=== PATIENT | female | born 1930 | race Caucasian/White ===

== ENCOUNTER 2016-06-25 17:53 | Inpatient (IN) | payer MEDICARE, OTHER ==
[2016-06-25] MEDS ORDERED: ONDANSETRON HCL INJ/PF 4 MG/2 ML SDV ONE (18:19)
[2016-06-25] MEDS ORDERED: ONDANSETRON HCL INJ/PF 4 MG/2 ML SDV IV ONE (18:26)
[2016-06-25] MEDS ORDERED: MORPHINE SULFATE 10 MG/ML INJ IV ONE (18:33)
--- NOTE | 2016-06-25 18:38 | ER Document Report ---
ED GI/ - General Chief Complaint: Abdominal Pain >50 Stated Complaint: ABDOMINAL PAIN Notes: The patient is an 86-year-old female, past medical history rectal cancer status post colectomy and colostomy (in [address] Good), presents with 2 hours of nausea, vomiting, severe abdominal pain and no output from her colostomy bag. She denies fevers, hematemesis, chest pain, shortness of breath or back pain. TRAVEL OUTSIDE OF THE [place] IN LAST 30 DAYS: No - Related Data Allergies/Adverse Reactions: No Known Allergies Allergy (Verified 06/25/16 18:09) Past Medical History - General Information source: Patient, Emergency Med Personnel - Social History Smoking Status: Unknown if Ever Smoked Family History: Reviewed & Not Pertinent - Past Medical History Cardiac Medical History: Denies: Hx Congestive Heart Failure, Hx Coronary Artery Disease, Hx DVT, Hx Heart Attack, Hx Hypercholesterolemia, Hx Hypertension, Hx Pulmonary Embolism Pulmonary Medical History: Reports: Hx Pneumonia - hx of Denies: Hx Asthma, Hx Bronchitis, Hx COPD, Hx Tuberculosis Neurological Medical History: Denies: Hx Cerebrovascular Accident, Hx Seizures Endocrine Medical History: Denies: Hx Diabetes Mellitus Type 1, Hx Diabetes Mellitus Type 2, Hx Hyperthyroidism, Hx Hypothyroidism Renal/ Medical History: Denies: Hx Ovarian Cysts, Hx Pelvic Inflammatory Disease Malignancy Medical History: Reports: Hx Colorectal Cancer, Hx Skin Cancer - Melanoma, left forearm, status post excision of same.. Denies: Hx Breast Cancer , Hx Cervical Cancer, Hx Ovarian Cancer GI Medical History: Reports: Hx Colonoscopy, Hx Endoscopy. Denies: Hx Cirrhosis , Hx Crohn's Disease, Hx Gastroesophageal Reflux Disease, Hx Hepatitis, Hx Hiatal Hernia, Hx Irritable Bowel, Hx Liver Failure, Hx Ulcer Musculoskeltal Medical History: Denies Hx Arthritis Psychiatric Medical History: Reports: Hx Depression Infectious Medical History: Denies: Hx Hepatitis Past Surgical History: Reports: Hx Appendectomy, Hx Bowel Diversion, Hx Bowel Surgery, Hx Hysterectomy, Hx Ileostomy. Denies: Hx Section, Hx Cholecystectomy, Hx Colostomy, Hx Coronary Artery Bypass Graft, Hx Gastric Bypass Surgery, Hx Herniorrhaphy, Hx Mastectomy, Hx Open Heart Surgery, Hx Pacemaker, Hx Tonsillectomy, Hx Tubal Ligation - Immunizations Hx Diphtheria, Pertussis, Tetanus Vaccination: Yes Hx Pneumococcal Vaccination: 03/30/10 Review of Systems - Review of Systems Notes: REVIEW OF SYSTEMS: CONSTITUTIONAL: Denies fever, chills, or sweats. Denies recent illness. EENT: Denies eye, ear, throat, or mouth pain or symptoms. Denies nasal or sinus congestion. CARDIOVASCULAR: Denies chest pain, syncope. RESPIRATORY: Denies cough, cold, or chest congestion. Denies shortness of breath, difficulty breathing, or wheezing. GASTROINTESTINAL: + Abdominal pain, nausea, vomiting GENITOURINARY: Denies difficulty urinating, painful urination, burning, frequency, or blood in urine. MUSCULOSKELETAL: Denies neck or back pain or joint pain or swelling. SKIN: Denies rash or skin lesions. HEMATOLOGIC: Denies easy bruising or bleeding. LYMPHATIC: Denies swollen, enlarged glands. NEUROLOGICAL: Denies altered mental status or loss of consciousness. Denies headache. Denies weakness or paralysis or loss of use of either side. Denies problems with gait or speech. Denies sensory or motor loss. PSYCHIATRIC: Denies anxiety or stress or depression. ALL OTHER SYSTEMS REVIEWED AND NEGATIVE. Physical Exam - Vital signs Vitals: Pulse Resp BP Pulse Ox 60 18 124/56 L 100 06/25/16 18:00 06/25/16 18:00 06/25/16 18:00 06/25/16 18:00 - Notes Notes: PHYSICAL EXAMINATION: GENERAL: Well-appearing, well-nourished and in no acute distress. HEAD: Atraumatic, normocephalic. EYES: Pupils equal round and reactive to light, extraocular movements intact, sclera anicteric, conjunctiva are normal. ENT: nares patent, oropharynx clear without exudates. Moist mucous membranes. NECK: Normal range of motion, supple without lymphadenopathy LUNGS: Breath sounds clear to auscultation bilaterally and equal. No wheezes rales or rhonchi. HEART: Regular rate and rhythm without murmurs ABDOMEN: Diffusely tender, no stool in colostomy bag, decreased bowel sounds. EXTREMITIES: Normal range of motion, no pitting or edema. No cyanosis. NEUROLOGICAL: Cranial nerves grossly intact. Normal speech, normal gait. Normal sensory, motor, and reflex exams. PSYCH: Normal mood, normal affect. SKIN: Warm, Dry, normal turgor, no rashes or lesions noted. Course - Re-evaluation Re-evalutation: 06/25/16 20:[address] shows evidence of internal hernia and surgical consultation is recommended. Spoke to Dr. Cross (surgeon on-call) at 1950 and he will be down to see patient. Recommends fluids at this time. Labs pending - Vital Signs Vital signs: Temp Pulse Resp BP Pulse Ox 69 16 153/65 H 98 06/25/16 19:38 06/25/16 19:38 06/25/16 19:38 06/25/16 19:38 - Diagnostic Test Radiology reviewed: Image reviewed Radiology results interpreted by me: CT A/P: Free fluid throughout the small bowel mesentery with a twisting appearance of the mesentery and vessels in the left lower quadrant, seen best on images 30 through 45, raising concern for possible internal hernia. No dilated small bowel, although there are multiple fluid-filled loops present the deep pelvis. Consider surgical consultation. Discharge - Discharge Clinical Impression: Internal hernia Nausea & vomiting Qualifiers: Vomiting type: unspecified Vomiting Intractability: unspecified Qualified Code( s): R11.2 - Nausea with vomiting, unspecified Abdominal pain Qualifiers: Abdominal location: generalized Qualified Code(s): R10.84 - Generalized abdominal pain Condition: Stable Disposition: ADMITTED INPATIENT Admitting Provider: Surgicalist - [place] Unit Admitted: Surgical Floor Referrals: JOAQUIN ALEGRE MD [Primary Care Provider] - Follow up as needed
[2016-06-25] MEDS ORDERED: HYDROMORPHONE HCL INJ/PF 2 MG/ML AMPULE IV ONE (19:08)
[2016-06-25] MEDS ORDERED: NORMAL SALINE 1000 ML 1,000 ML IV ONE (19:56)
[2016-06-25] MEDS ORDERED: PROMETHAZINE HCL INJ 25 MG/1 ML VIAL IV ONE (19:58)
[2016-06-25 20:49] LABS: ABSOLUTE LYMPHOCYTES (AUTO) 0.5 10^3/uL (0.5-4.7); ABSOLUTE MONOCYTES (AUTO) 0.6 10^3/uL (0.1-1.4); ABSOLUTE NEUT (AUTO) 8.6 10^3/uL (1.7-8.2); BASOPHILS % (AUTO) 0.2 % (0-2); EOSINOPHILS % (AUTO) 0.1 % (0-6); HEMATOCRIT 33.1 % (36.0-47.0); HEMOGLOBIN 11.2 g/dL (12.0-15.5); HGB HCT DIFFERENCE 0.5; LYMPHOCYTES % (AUTO) 5.2 % (13-45); MEAN CORPUSCULAR HEMOGLOBIN 30.6 pg (27.0-33.4); MEAN CORPUSCULAR VOLUME 90 fl (80-97); MONOCYTES % (AUTO) 5.8 % (3-13); RED BLOOD COUNT 3.68 10^6/uL (3.72-5.28); RED CELL DISTRIBUTION WIDTH 15.6 % (11.5-14.0); SEGMENTED NEUTROPHILS % (AUTO) 88.7 % (42-78); WHITE BLOOD COUNT 9.7 10^3/uL (4.0-10.5)
[2016-06-25 20:58] LABS: ALANINE AMINOTRANSFERASE 40 U/L (9-52); ALKALINE PHOSPHATASE 147 U/L (38-126); ANION GAP 12 (5-19); ASPARTATE AMINO TRANSFERASE 28 U/L (14-36); BILIRUBIN,TOTAL 0.6 mg/dL (0.2-1.3); BLOOD UREA NITROGEN 24 mg/dL (7-20); CALCIUM 8.6 mg/dL (8.4-10.2); CARBON DIOXIDE 27 mmol/L (22-30); CHLORIDE 100 mmol/L (98-107); CREATININE RESULT 0.81 mg/dL (0.52-1.25); GLUCOSE 175 mg/dL (75-110); LIPASE 115.9 U/L (23-300); SODIUM 138.7 mmol/L (137-145)
[2016-06-25] MEDS ORDERED: ONDANSETRON HCL INJ/PF 4 MG/2 ML SDV IV PRN (21:59)
--- NOTE | 2016-06-25 22:14 | PDOC H&P ---
History of Present Illness Admission Date/PCP: 06/25/16 20:39 JOAQUIN ALEGRE MD Patient complains of: Abdominal pain History of Present Illness: LEANDRA LEZAMA is a 86 year old female emergency department by ground rescue from [facility] complaining of abdominal pain acute onset worse over the last 12 hours, decreased and no colostomy output. [facility] of the abdomen and pelvis without oral contrast which showed findings consistent with a small bowel obstruction possibly due to an internal hernia. Surgery is consulted and she was advised admission. Her past medical surgical history is significant for adenocarcinoma status post neoadjuvant chemoradiation followed by abdominal perineal resection Dr. Mike nagel, 2010. She is had several episodes of small bowel obstruction since then most recently September 2015, all managed nonoperatively. Patient reportedly was ambulating, mentating, taking care of her activities of daily living until recently. Per history of present illness is incomplete because she has received anti- emesis medication and is somewhat confused. Past Medical History Cardiac Medical History: Denies: Congestive Heart Failure, Coronary Artery Disease, DVT, Myocardial Infarction, Hyperlipidema, Hypertension, Pulmonary Embolism Pulmonary Medical History: Reports: Pneumonia - hx of Denies: Asthma, Bronchitis, Chronic Obstructive Pulmonary Disease (COPD), Tuberculosis Neurological Medical History: Denies: Seizures Endocrine Medical History: Denies: Diabetes Mellitus Type 1, Diabetes Mellitus Type 2, Hyperthyroidism, Hypothyroidism Malignancy Medical History: Reports: Colorectal Cancer, Skin Cancer - Melanoma, left forearm, status post excision of same. Denies: Breast Cancer, Cervical Cancer, Ovarian Cancer GI Medical History: Denies: Cirrhosis, Crohn's Disease, Gastroesophageal Reflux Disease, Hepatitis, Hiatal Hernia Musculoskeltal Medical History: Denies: Arthritis Psychiatric Medical History: Reports: Depression Hematology: Reports: Anemia - hx of Denies: Sickle Cell Disease Infectious Medical History: Past Surgical History Past Surgical History: Reports: Appendectomy, Hysterectomy, Ileostomy, Other - Abdominal perineal resection with permanent colostomy Denies: Amputation, Section, Cholecystectomy, Colostomy, Coronary Artery Bypass Graft, Gastric Bypass Surgery, Herniorrhaphy, Mastectomy, Pacemaker, Tonsillectomy, Tubal Ligation Social History Smoking Status: Unknown if Ever Smoked Frequency of Alcohol Use: Rare Hx Recreational Drug Use: No Drugs: None Hx Prescription Drug Abuse: No Family History Family History: Reviewed & Not Pertinent Parental Family History Reviewed: Yes Children Family History Reviewed: Yes Sibling(s) Family History Reviewed.: Yes Medication/Allergy Home Medications: Acetaminophen [Tylenol 325 mg Tablet] 1,000 mg PO Q8HP PRN 06/25/16 Ascorbic Acid [Vitamin C 500 mg Tablet] 250 mg PO DAILY 06/25/16 Bupropion HCl 75 mg PO DAILY 06/25/16 Calcium Carbonate/Vitamin D3 [Calcium 500-Vit D3 400 Tablet] 1 each PO DAILY 11/04 Ferrous Sulfate [Feosol 325 mg Tablet] 325 mg PO BID 06/25/16 Guar Gum [Benefiber] 2 tsp PO DAILY 06/25/16 Hydrocodone/Acetaminophen [[place] 5-325 Tablet] 1 tab PO Q6HP PRN 06/25/16 Ipratropium/Albuterol Sulfate [Combivent Respimat 4 gm Mdi] 1 puff PO Q6HP PRN 06/25/16 Multivitamin [Tab-A-Corrine] 1 each PO DAILY 06/25/16 Rivaroxaban [Xarelto 10 mg Tablet] 10 mg PO DAILY 06/25/16 Sennosides [Senna] 17.2 mg PO QHS 06/25/16 Allergies/Adverse Reactions: No Known Allergies Allergy (Verified 06/25/16 18:09) Physical Exam Vital Signs: Temp Pulse Resp BP Pulse Ox 69 16 153/65 H 98 06/25/16 19:38 06/25/16 19:38 06/25/16 19:38 06/25/16 19:38 General appearance: PRESENT: mild distress Head exam: PRESENT: normocephalic Eye exam: PRESENT: EOMI Ear exam: PRESENT: normal external ear exam Mouth exam: PRESENT: dry mucosa Neck exam: PRESENT: full ROM Respiratory exam: PRESENT: clear to auscultation lia Cardiovascular exam: PRESENT: RRR Pulses: PRESENT: normal carotid pulses, normal femoral pulses GI/Abdominal exam: PRESENT: other - Ostomy appliance removed, ostomy is pink, is digitalized with the index finger lubricated and it is patent, nonobstructed and no evidence of constipation. The remainder the abdomen is slightly distended no peritoneal signs no rigidity. Some tenderness. Gentrourinary exam: PRESENT: other - Deferred Musculoskeletal exam: PRESENT: other - No edema Neurological exam: PRESENT: alert, altered, awake, other - Somewhat confused at times Results Impressions: Abdomen/Pelvis CT 06/25/16 18:27 IMPRESSION: Free fluid throughout the small bowel mesentery a with twisting appearance of the mesentery and its vessels in the left lower quadrant, seen best on images 30-45, raising the concern for possible internal hernia. No dilated small bowel, though there are multiple fluid-filled loops present in the deep pelvis. Consider surgical consultation. Surgeon remarks:: Is no free air, free fluid, abscess MD: Minimal amount of stool in the right colon. Several dilated loops of small bowel primarily in the pelvis. Assessment & Plan - Diagnosis (1) Small bowel obstruction Is this a current diagnosis for this admission?: YesPlan: 1. Medical history, physical exam findings, and radiographic images most consistent with small bowel obstruction area and this appears to be slightly different in pattern on CT scan compared with September 2015. 2. There is no apparent evidence of ostomy obstruction due to stool impaction 3. Plan will be to keep patient nothing by mouth, IV fluids, and gastric decompression, and [place] catheter insertion. Hopefully patient will improve with nonoperative management however if she does not, she may require exploratory laparotomy and necessary surgery. (2) DVT prophylaxis Is this a current diagnosis for this admission?: YesPlan: Patient has been on Xarelto; will hold this for now. (3) Hypokalemia Is this a current diagnosis for this admission?: Yes (4) Anxiety Is this a current diagnosis for this admission?: Yes (5) Asthma Is this a current diagnosis for this admission?: Yes - Time Time Spent: 30 to 50 Minutes Critical Time spent with patient: 15-24 minutes Anticipated discharge: SNF - Inpatient Certification Based on my medical assessment, after consideration of the patient's comorbidities, presenting symptoms, or acuity I expect that the services needed warrant INPATIENT care.: Yes I certify that my determination is in accordance with my understanding of Medicare's requirements for reasonable and necessary INPATIENT services [42 CFR 412.3e].: Yes Medical Necessity: Need For IV Fluids, Need for Pain Control, Need for IV Antibiotics Post Hospital Care: D/C [employer] [employer] Documentation - Plan Summary Plan Summary: As above; patient is full code; we'll need to contact family about her acute change of events, and discuss care objectives and expectations.
[2016-06-25 23:06] LABS: APPEARANCE,URINE CLEAR; BILIRUBIN,URINE NEGATIVE (NEGATIVE); GLUCOSE, URINE NEGATIVE (NEGATIVE); KETONES,URINE NEGATIVE (NEGATIVE); LEUKOCYTE ESTERASE,URINE NEGATIVE (NEGATIVE); NITRITE,URINE NEGATIVE (NEGATIVE); PROTEIN,URINE NEGATIVE (NEGATIVE); URINE SPECIFIC GRAVITY 1.036; UROBILINOGEN,URINE NEGATIVE mg/dL (<2.0)
[2016-06-25] MEDS: FAMOTIDINE INJ/PF 20 MG/2 ML SDV IV SCH (23:22)
[2016-06-26] MEDS ORDERED: MORPHINE SULFATE 10 MG/ML INJ IV PRN (00:59)
[2016-06-26] MEDS: DEXTROSE 5%-LACTATED RINGERS 1,000 ML IV PRN (02:34)
[2016-06-26] MEDS: FAMOTIDINE INJ/PF 20 MG/2 ML SDV IV SCH ×2 (09:00→21:06)
--- NOTE | 2016-06-26 14:05 | PDOC PROGRESS REPORT ---
Subjective Progress Note for:: 06/26/16 Subjective:: Denies nausea, vomiting, flatus, BM. Abdominal pain nearly resolved. Physical Exam Vital Signs: Temp Pulse Resp BP Pulse Ox 99.7 F 93 18 145/61 H 98 06/26/16 12:04 06/26/16 12:04 06/26/16 12:04 06/26/16 12:04 06/26/16 12:04 Intake & Output 06/25/16 06/26/16 06/27/16 06:59 06:59 06:59 Intake Total 900 Output Total 800 Balance 100 Weight 45.8 kg General appearance: PRESENT: no acute distress Head exam: PRESENT: normocephalic Eye exam: PRESENT: EOMI Mouth exam: PRESENT: tongue midline GI/Abdominal exam: PRESENT: distended, hypoactive bowel sounds, soft. ABSENT: tenderness Neurological exam: PRESENT: alert, oriented to situation Results Laboratory Results: 06/25/16 22:45 Urine Color STRAW Urine Appearance CLEAR Urine pH 7.0 Ur Specific [place] 1.036 Urine Protein NEGATIVE Urine Glucose (UA) NEGATIVE Urine Ketones NEGATIVE Urine Blood NEGATIVE Urine Nitrite NEGATIVE Ur Leukocyte Esterase NEGATIVE Urine WBC (Auto) 1 Urine RBC (Auto) 2 Impressions: Chest X-Ray 06/25/16 00:00 IMPRESSION: NO ACUTE RADIOGRAPHIC FINDING IN THE CHEST.Nasogastric tube is present with tip overlying the body of the stomach, the side port is near the GE junction and could be advanced 5 to 6 cm for more ideal placement. Abdomen/Pelvis CT 06/25/16 18:27 IMPRESSION: Free fluid throughout the small bowel mesentery a with twisting appearance of the mesentery and its vessels in the left lower quadrant, seen best on images 30-45, raising the concern for possible internal hernia. No dilated small bowel, though there are multiple fluid-filled loops present in the deep pelvis. Consider surgical consultation. Abdomen X-Ray 06/26/16 07:00 IMPRESSION: Gaseous distention of a loop of colon extending into the pelvis as noted above. The possibility of a developing obstruction including a sigmoid volvulus should be considered. Otherwise a nonspecific intestinal bowel gas pattern is seen. Other findings as noted above Assessment & Plan - Diagnosis (1) Small bowel obstruction Is this a current diagnosis for this admission?: Yes
[2016-06-27] MEDS: DEXTROSE 5%-LACTATED RINGERS 1,000 ML IV PRN (01:14)
[2016-06-27] MEDS: FAMOTIDINE INJ/PF 20 MG/2 ML SDV IV SCH ×2 (09:45→21:19)
--- NOTE | 2016-06-27 12:58 | PDOC PROGRESS REPORT ---
Subjective Progress Note for:: 06/27/16 Subjective:: Patient denies nausea, vomiting, fever, abdominal pain is improving since admission. Physical Exam Vital Signs: Temp Pulse Resp BP Pulse Ox 98.7 F 77 12 161/63 H 100 06/27/16 08:11 06/27/16 08:11 06/27/16 08:11 06/27/16 08:11 06/27/16 08:11 Intake & Output 06/26/16 06/27/16 06/28/16 06:59 06:59 06:59 Intake Total 900 3165 Output Total 800 1550 Balance 100 1615 Weight 45.8 kg 47.8 kg General appearance: PRESENT: no acute distress, cooperative Head exam: PRESENT: atraumatic, normocephalic GI/Abdominal exam: PRESENT: distended - Mildly, soft, other - Colostomy is pink , viable, no gas or stool. Colostomy was digitalized with lubricated finger, no stool was felt... ABSENT: firm, guarding, hernia, rebound, rigid, tenderness Rectal exam: PRESENT: deferred Neurological exam: PRESENT: alert Results Impressions: Chest X-Ray 06/25/16 00:00 IMPRESSION: NO ACUTE RADIOGRAPHIC FINDING IN THE CHEST.Nasogastric tube is present with tip overlying the body of the stomach, the side port is near the GE junction and could be advanced 5 to 6 cm for more ideal placement. Abdomen/Pelvis CT 06/25/16 18:27 IMPRESSION: Free fluid throughout the small bowel mesentery a with twisting appearance of the mesentery and its vessels in the left lower quadrant, seen best on images 30-45, raising the concern for possible internal hernia. No dilated small bowel, though there are multiple fluid-filled loops present in the deep pelvis. Consider surgical consultation. Abdomen X-Ray 06/26/16 07:00 IMPRESSION: Gaseous distention of a loop of colon extending into the pelvis as noted above. The possibility of a developing obstruction including a sigmoid volvulus should be considered. Otherwise a nonspecific intestinal bowel gas pattern is seen. Other findings as noted above Assessment & Plan - Diagnosis (1) Small bowel obstruction Is this a current diagnosis for this admission?: YesPlan: Patient is 86 years old female, with history of APR due to rectal cancer 2010, who was admitted to the hospital due to bowel obstruction, likely adhesive, patient is feeling better, her abdominal pain resolved, no nausea or vomiting, NG tube output is 200 in the last 24 hours, no stoma function, no peritoneal signs. Her urine output is adequate and it is diluted, plan: Out of bed, keep NG tube, IV hydration, strict in's and outs, serial examination , with check electrolytes today, awaiting GI function return.
[2016-06-27 14:56] LABS: ANION GAP 8 (5-19); BLOOD UREA NITROGEN 9 mg/dL (7-20); CALCIUM 8.9 mg/dL (8.4-10.2); CARBON DIOXIDE 34 mmol/L (22-30); CHLORIDE 101 mmol/L (98-107); CREATININE RESULT 0.63 mg/dL (0.52-1.25); GLUCOSE 111 mg/dL (75-110); MAGNESIUM 1.7 mg/dL (1.6-2.3); POTASSIUM 3.3 mmol/L (3.6-5.0); SODIUM 143.2 mmol/L (137-145)
[2016-06-27] MEDS ORDERED: MAGNESIUM SULFATE/D5W 100 ML IV SCH (19:00)
[2016-06-27] MEDS: POTASSI CL 20 MEQ/50 ML RIDER 50 ML IV SCH (19:44)
[2016-06-28] MEDS: POTASSI CL 20 MEQ/50 ML RIDER 50 ML IV SCH (00:32)
[2016-06-28] MEDS: DEXTROSE 5%-LACTATED RINGERS 1,000 ML IV PRN ×2 (03:28→09:45)
[2016-06-28] MEDS ORDERED: MAGNESIUM SULFATE/D5W 1 GM/100 ML RTUPB IV SCH (04:00)
[2016-06-28] MEDS: FAMOTIDINE INJ/PF 20 MG/2 ML SDV IV SCH ×2 (09:30→21:56)
--- NOTE | 2016-06-28 13:02 | PDOC PROGRESS REPORT ---
Subjective Progress Note for:: 06/28/16 Subjective:: Patient denies nausea, vomiting, fever, abdominal pain. NG tube still in place , 300 mL over last 12 hours. Physical Exam Vital Signs: Temp Pulse Resp BP Pulse Ox 98.0 F 85 14 166/80 H 100 06/28/16 08:09 06/28/16 08:09 06/28/16 08:09 06/28/16 08:09 06/28/16 08:09 Intake & Output 06/27/16 06/28/16 06/29/16 06:59 06:59 06:59 Intake Total 3165 3071 Output Total 1550 3400 550 Balance 6335 329 -550 Weight 47.8 kg 44 kg General appearance: PRESENT: no acute distress, cooperative Head exam: PRESENT: atraumatic, normocephalic Respiratory exam: ABSENT: accessory muscle use, chest wall tenderness GI/Abdominal exam: PRESENT: soft, other - colostomy is pink, viable, no jenaro or stool. ABSENT: distended, firm, guarding, rebound - Technique the patient brought, rigid, tenderness Neurological exam: PRESENT: alert, awake Results Laboratory Results: 06/27/16 14:04 06/27/16 14:04 Sodium 143.2 Potassium 3.3 L Chloride 101 Carbon Dioxide 34 H Anion Gap 8 BUN 9 Creatinine 0.63 Est GFR ( Amer) > 60 Est GFR (Non-Af Amer) > 60 Glucose 111 H Calcium 8.9 Magnesium 1.7 Impressions: Chest X-Ray 06/25/16 00:00 IMPRESSION: NO ACUTE RADIOGRAPHIC FINDING IN THE CHEST.Nasogastric tube is present with tip overlying the body of the stomach, the side port is near the GE junction and could be advanced 5 to 6 cm for more ideal placement. Abdomen/Pelvis CT 06/25/16 18:27 IMPRESSION: Free fluid throughout the small bowel mesentery a with twisting appearance of the mesentery and its vessels in the left lower quadrant, seen best on images 30-45, raising the concern for possible internal hernia. No dilated small bowel, though there are multiple fluid-filled loops present in the deep pelvis. Consider surgical consultation. Abdomen X-Ray 06/26/16 07:00 IMPRESSION: Gaseous distention of a loop of colon extending into the pelvis as noted above. The possibility of a developing obstruction including a sigmoid volvulus should be considered. Otherwise a nonspecific intestinal bowel gas pattern is seen. Other findings as noted above Assessment & Plan - Diagnosis (1) Small bowel obstruction Is this a current diagnosis for this admission?: YesPlan: Continue NG tube, we'll place it to gravity, out of bed ambulate, IV hydration, will give tapwater enema and the colostomy, awaiting GI function.
[2016-06-28] MEDS ORDERED: HALOPERIDOL LACTATE INJ 5 MG/1 ML VIAL ONE (14:22)
[2016-06-28] MEDS ORDERED: HALOPERIDOL LACTATE INJ 5 MG/1 ML VIAL IV PRN (15:24)
[2016-06-28] MEDS ORDERED: LORAZEPAM INJ 2 MG/1 ML VIAL IV PRN (15:25)
--- NOTE | 2016-06-28 15:39 | PDOC CONSULTATION ---
Consultation Consult Date: 06/28/16 Attending physician:: HELEN MERRITT Consult reason:: Patient with small bowel obstruction, with intermittent confusion and agitation History of Present Illness Admission Date/PCP: 06/25/16 21:53 JOAQUIN ALEGRE MD History of Present Illness: LEANDRA LEZAMA is a 86 year old female emergency department by ground rescue from [facility] complaining of abdominal pain acute onset worse over the last 12 hours, decreased and no colostomy output. [facility] scan of the abdomen and pelvis without oral contrast which showed findings consistent with a small bowel obstruction possibly due to an internal hernia. Surgery is consulted and she was advised admission. Her past medical surgical history is significant for adenocarcinoma status post neoadjuvant chemoradiation followed by abdominal perineal resection Dr. Mike nagel, 2010. She is had several episodes of small bowel obstruction since then most recently September 2015, all managed nonoperatively. Patient reportedly was ambulating, mentating, taking care of her activities of daily living until recently. She has been managed by the surgical service, for her small bowel obstruction. She has had an NG tube in place with nothing by mouth until the patient became agitated and hour ago and remove the NG tube. Patient is now extremely paranoid, she feels much she is been held hostage by the nursing staff. She presently has security guards attempting to get her back into her room. She had similar episodes during her hospitalization one month ago for her hip fracture. Past Medical History Cardiac Medical History: Denies: Congestive Heart Failure, Coronary Artery Disease, DVT, Myocardial Infarction, Hyperlipidema, Hypertension, Pulmonary Embolism Pulmonary Medical History: Reports: Pneumonia - hx of Denies: Asthma, Bronchitis, Chronic Obstructive Pulmonary Disease (COPD), Tuberculosis Neurological Medical History: Denies: Seizures Endocrine Medical History: Denies: Diabetes Mellitus Type 1, Diabetes Mellitus Type 2, Hyperthyroidism, Hypothyroidism Malignancy Medical History: Reports: Colorectal Cancer, Skin Cancer - Melanoma, left forearm, status post excision of same. Denies: Breast Cancer, Cervical Cancer, Ovarian Cancer GI Medical History: Denies: Cirrhosis, Crohn's Disease, Gastroesophageal Reflux Disease, Hepatitis, Hiatal Hernia Musculoskeltal Medical History: Denies: Arthritis Psychiatric Medical History: Reports: Depression Hematology: Reports: Anemia - hx of Denies: Sickle Cell Disease Infectious Medical History: Past Surgical History Past Surgical History: Reports: Appendectomy, Hysterectomy, Ileostomy, Other - Abdominal perineal resection with permanent colostomy Denies: Amputation, Section, Cholecystectomy, Colostomy, Coronary Artery Bypass Graft, Gastric Bypass Surgery, Herniorrhaphy, Mastectomy, Pacemaker, Tonsillectomy, Tubal Ligation Social History Smoking Status: Never Smoker Frequency of Alcohol Use: None Hx Recreational Drug Use: No Drugs: None Hx Prescription Drug Abuse: No - Advance Directive Resuscitation Status: Full Code Family History Family History: Reviewed & Not Pertinent Parental Family History Reviewed: Yes Children Family History Reviewed: Yes Sibling(s) Family History Reviewed.: Yes Medication/Allergy Home Medications: Acetaminophen [Tylenol 325 mg Tablet] 1,000 mg PO Q8HP PRN 06/25/16 Ascorbic Acid [Vitamin C 500 mg Tablet] 250 mg PO DAILY 06/25/16 Bupropion HCl 75 mg PO DAILY 06/25/16 Calcium Carbonate/Vitamin D3 [Calcium 500-Vit D3 400 Tablet] 1 each PO DAILY 11/04 Ferrous Sulfate [Feosol 325 mg Tablet] 325 mg PO BID 06/25/16 Guar Gum [Benefiber] 2 tsp PO DAILY 06/25/16 Hydrocodone/Acetaminophen [[place] 5-325 Tablet] 1 tab PO Q6HP PRN 06/25/16 Ipratropium/Albuterol Sulfate [Combivent Respimat 4 gm Mdi] 1 puff PO Q6HP PRN 06/25/16 Multivitamin [Tab-A-Corrine] 1 each PO DAILY 06/25/16 Rivaroxaban [Xarelto 10 mg Tablet] 10 mg PO DAILY 06/25/16 Sennosides [Senna] 17.2 mg PO QHS 06/25/16 Allergies/Adverse Reactions: No Known Allergies Allergy (Verified 06/25/16 18:09) Review of Systems ROS unobtainable: Due to mental status Physical Exam Vital Signs: Temp Pulse Resp BP Pulse Ox 98.0 F 85 14 166/80 H 100 06/28/16 08:09 06/28/16 08:09 06/28/16 08:09 06/28/16 08:09 06/28/16 08:09 Intake & Output 06/27/16 06/28/16 06/29/16 06:59 06:59 06:59 Intake Total 5365 9351 Output Total 1551 1560 867 Balance 1615 -329 -550 Weight 47.8 kg 44 kg General appearance: PRESENT: mild distress - due to agitation, thin Head exam: PRESENT: atraumatic, normocephalic Eye exam: PRESENT: conjunctiva pink, EOMI, PERRLA. ABSENT: scleral icterus Ear exam: PRESENT: normal external ear exam Mouth exam: PRESENT: moist, tongue midline Neck exam: PRESENT: full ROM. ABSENT: carotid bruit, JVD, lymphadenopathy, thyromegaly Respiratory exam: PRESENT: clear to auscultation lia, symmetrical, unlabored. ABSENT: rales, rhonchi, wheezes Cardiovascular exam: PRESENT: RRR. ABSENT: diastolic murmur, rubs, systolic murmur Pulses: PRESENT: normal dorsalis pedis pul Vascular exam: PRESENT: normal capillary refill GI/Abdominal exam: PRESENT: diminished bowel sounds, soft. ABSENT: distended, guarding, mass, organolmegaly, rebound, tenderness Rectal exam: PRESENT: deferred Extremities exam: PRESENT: full ROM. ABSENT: calf tenderness, clubbing, pedal edema Neurological exam: PRESENT: alert, altered Psychiatric exam: PRESENT: agitated Focused psych exam: PRESENT: delusional, paranoid Skin exam: PRESENT: dry, intact, warm. ABSENT: cyanosis, rash Results Laboratory Results: 06/27/16 14:04 Impressions: Chest X-Ray 06/25/16 00:00 IMPRESSION: NO ACUTE RADIOGRAPHIC FINDING IN THE CHEST.Nasogastric tube is present with tip overlying the body of the stomach, the side port is near the GE junction and could be advanced 5 to 6 cm for more ideal placement. Abdomen/Pelvis CT 06/25/16 18:27 IMPRESSION: Free fluid throughout the small bowel mesentery a with twisting appearance of the mesentery and its vessels in the left lower quadrant, seen best on images 30-45, raising the concern for possible internal hernia. No dilated small bowel, though there are multiple fluid-filled loops present in the deep pelvis. Consider surgical consultation. Abdomen X-Ray 06/26/16 07:00 IMPRESSION: Gaseous distention of a loop of colon extending into the pelvis as noted above. The possibility of a developing obstruction including a sigmoid volvulus should be considered. Otherwise a nonspecific intestinal bowel gas pattern is seen. Other findings as noted above Assessment & Plan - Diagnosis (1) Agitated Is this a current diagnosis for this admission?: YesPlan: Patient has anxiety/depressive disorder and has been off her Buproprion for 3 days. She most likely has underlying dementia as well. She had similar episodes of paranoia and agitation. Will give her Haldol 5 mg IM now and then prn Haldol and ativan as needed. (2) Paranoia (psychosis) Plan: Haldol 5mg IM now and Haldol 3 mg IV q4hp (3) Small bowel obstruction Is this a current diagnosis for this admission?: Yes (4) Anxiety Is this a current diagnosis for this admission?: YesPlan: Patient has been without Buproprion due to being NPO for the last 3 days. Will give ativan 0.5 mg IV q4hp until it can be restarted - Time Time Spent: 50 to 70 Minutes Critical Time spent with patient: 25-34 minutes Medications reviewed and adjusted accordingly: Yes
[2016-06-28] MEDS ORDERED: LORAZEPAM INJ 2 MG/1 ML VIAL ONE (16:06)
[2016-06-29 05:56] LABS: HEMATOCRIT 31.1 % (36.0-47.0); HEMOGLOBIN 10.5 g/dL (12.0-15.5); HGB HCT DIFFERENCE 0.4; MEAN CORPUSCULAR HEMOGLOBIN 30.2 pg (27.0-33.4); MEAN CORPUSCULAR HGB CONC 33.7 g/dL (32.0-36.0); MEAN CORPUSCULAR VOLUME 89 fl (80-97); RED BLOOD COUNT 3.48 10^6/uL (3.72-5.28); RED CELL DISTRIBUTION WIDTH 15.8 % (11.5-14.0); WHITE BLOOD COUNT 5.6 10^3/uL (4.0-10.5)
[2016-06-29 06:13] LABS: ANION GAP 8 (5-19); BLOOD UREA NITROGEN 11 mg/dL (7-20); CALCIUM 8.7 mg/dL (8.4-10.2); CARBON DIOXIDE 33 mmol/L (22-30); CHLORIDE 101 mmol/L (98-107); CREATININE RESULT 0.82 mg/dL (0.52-1.25); GLUCOSE 90 mg/dL (75-110); POTASSIUM 3.3 mmol/L (3.6-5.0); SODIUM 141.7 mmol/L (137-145)
[2016-06-29] MEDS ORDERED: POTASSI CL 20 MEQ/50 ML RIDER 50 ML IV SCH ×2 (06:45→10:46)
[2016-06-29] MEDS: FAMOTIDINE INJ/PF 20 MG/2 ML SDV IV SCH ×2 (10:30→22:01)
--- NOTE | 2016-06-29 11:43 | PDOC PROGRESS REPORT ---
Subjective Progress Note for:: 06/29/16 Subjective:: Patient was confused last night, disoriented. She pulled out her IV. Physical Exam Vital Signs: Temp Pulse Resp BP Pulse Ox 97.2 F 67 16 149/66 H 100 06/29/16 00:51 06/29/16 00:51 06/29/16 00:51 06/29/16 00:51 06/29/16 00:51 Intake & Output 06/28/16 06/29/16 06/30/16 06:59 06:59 06:59 Intake Total 3071 1150 Output Total 3400 1275 Balance -329 -125 Weight 44 kg 43.8 kg General appearance: PRESENT: mild distress, other - Is disoriented to time and situation. GI/Abdominal exam: PRESENT: other - The abdomen is soft and not distended. The ostomy is full of gas and stool. Results Laboratory Results: 06/29/16 05:35 06/29/16 05:35 06/29/16 06/29/16 05:35 05:35 WBC 5.6 RBC 3.48 L Hgb 10.5 L Hct 31.1 L MCV 89 MCH 30.2 MCHC 33.7 RDW 15.8 H Plt Count 204 Sodium 141.7 Potassium 3.3 L Chloride 101 Carbon Dioxide 33 H Anion Gap 8 BUN 11 Creatinine 0.82 Est GFR ( Amer) > 60 Est GFR (Non-Af Amer) > 60 Glucose 90 Calcium 8.7 Impressions: Chest X-Ray 06/25/16 00:00 IMPRESSION: NO ACUTE RADIOGRAPHIC FINDING IN THE CHEST.Nasogastric tube is present with tip overlying the body of the stomach, the side port is near the GE junction and could be advanced 5 to 6 cm for more ideal placement. Abdomen/Pelvis CT 06/25/16 18:27 IMPRESSION: Free fluid throughout the small bowel mesentery a with twisting appearance of the mesentery and its vessels in the left lower quadrant, seen best on images 30-45, raising the concern for possible internal hernia. No dilated small bowel, though there are multiple fluid-filled loops present in the deep pelvis. Consider surgical consultation. Abdomen X-Ray 06/26/16 07:00 IMPRESSION: Gaseous distention of a loop of colon extending into the pelvis as noted above. The possibility of a developing obstruction including a sigmoid volvulus should be considered. Otherwise a nonspecific intestinal bowel gas pattern is seen. Other findings as noted above Assessment & Plan - Diagnosis (1) Small bowel obstruction Is this a current diagnosis for this admission?: YesPlan: 1. Patient is clinically improved. There is excellent ostomy output, and the abdomen is decompressed 2. Will start patient on clear liquids 3. Will work on disposition for the patient. (2) DVT prophylaxis Is this a current diagnosis for this admission?: Yes (3) Hypokalemia Is this a current diagnosis for this admission?: Yes (4) Anxiety Is this a current diagnosis for this admission?: Yes (5) Asthma Is this a current diagnosis for this admission?: Yes - Time Time Spent with patient: 15-24 minutes
--- NOTE | 2016-06-29 14:37 | PDOC PROGRESS REPORT ---
Subjective Progress Note for:: 06/29/16 Subjective:: Patient seen on morning rounds. She is resting in bed with her eyes closed. She does not respond to verbal stimuli. She was awake earlier when nursing staff gave her an enema. She got agitated and pulled her IV out. She has been more cooperative and less paranoid overnight. Physical Exam Vital Signs: Temp Pulse Resp BP Pulse Ox 97.8 F 91 14 162/75 H 97 06/29/16 11:50 06/29/16 11:50 06/29/16 11:50 06/29/16 11:50 06/29/16 11:50 Intake & Output 06/28/16 06/29/16 06/30/16 06:59 06:59 06:59 Intake Total 3071 1150 Output Total 3400 1275 Balance -329 -125 Weight 44 kg 43.8 kg General appearance: PRESENT: no acute distress, thin, well-developed Head exam: PRESENT: atraumatic, normocephalic Eye exam: PRESENT: conjunctiva pink, EOMI, PERRLA. ABSENT: scleral icterus Ear exam: PRESENT: normal external ear exam Mouth exam: PRESENT: moist, tongue midline Neck exam: ABSENT: carotid bruit, JVD, lymphadenopathy, thyromegaly Respiratory exam: PRESENT: clear to auscultation lia. ABSENT: rales, rhonchi, wheezes Cardiovascular exam: PRESENT: RRR. ABSENT: diastolic murmur, rubs, systolic murmur Pulses: PRESENT: normal dorsalis pedis pul Vascular exam: PRESENT: normal capillary refill GI/Abdominal exam: PRESENT: normal bowel sounds, soft. ABSENT: distended, guarding, mass, organolmegaly, rebound, tenderness Rectal exam: PRESENT: deferred Extremities exam: PRESENT: full ROM. ABSENT: calf tenderness, clubbing, pedal edema Musculoskeletal exam: PRESENT: ambulatory Neurological exam: PRESENT: alert, altered, CN II-XII grossly intact, normal gait Psychiatric exam: PRESENT: agitated, anxious Focused psych exam: PRESENT: paranoid Skin exam: PRESENT: dry, intact, warm. ABSENT: cyanosis, rash Results Laboratory Results: 06/29/16 05:35 06/29/16 05:35 06/29/16 06/29/16 05:35 05:35 WBC 5.6 RBC 3.48 L Hgb 10.5 L Hct 31.1 L MCV 89 MCH 30.2 MCHC 33.7 RDW 15.8 H Plt Count 204 Sodium 141.7 Potassium 3.3 L Chloride 101 Carbon Dioxide 33 H Anion Gap 8 BUN 11 Creatinine 0.82 Est GFR ( Amer) > 60 Est GFR (Non-Af Amer) > 60 Glucose 90 Calcium 8.7 Impressions: Chest X-Ray 06/25/16 00:00 IMPRESSION: NO ACUTE RADIOGRAPHIC FINDING IN THE CHEST.Nasogastric tube is present with tip overlying the body of the stomach, the side port is near the GE junction and could be advanced 5 to 6 cm for more ideal placement. Abdomen/Pelvis CT 06/25/16 18:27 IMPRESSION: Free fluid throughout the small bowel mesentery a with twisting appearance of the mesentery and its vessels in the left lower quadrant, seen best on images 30-45, raising the concern for possible internal hernia. No dilated small bowel, though there are multiple fluid-filled loops present in the deep pelvis. Consider surgical consultation. Abdomen X-Ray 06/26/16 07:00 IMPRESSION: Gaseous distention of a loop of colon extending into the pelvis as noted above. The possibility of a developing obstruction including a sigmoid volvulus should be considered. Otherwise a nonspecific intestinal bowel gas pattern is seen. Other findings as noted above Assessment & Plan - Diagnosis (1) Agitated Is this a current diagnosis for this admission?: YesPlan: Patient has anxiety/depressive disorder and has been off her Buproprion for 4 days. She most likely has underlying dementia as well. She had similar episodes of paranoia and agitation. She has prn haldol and ativan ordered for agitation. Will restart buproprion now that she can have clear liquids (2) Paranoia (psychosis) Plan: Haldol 5mg IM now and Haldol 3 mg IV q4hp (3) Small bowel obstruction Is this a current diagnosis for this admission?: YesPlan: Having ostomy output after enema. Has a history of several sbo prior. Starting clear liquids per Dr Cross (4) Anxiety Is this a current diagnosis for this admission?: YesPlan: Patient has been without Buproprion due to being NPO for the last 3 days. Will give ativan 0.5 mg IV q4hp until it can be restarted (5) Malnutrition of moderate degree Plan: BMI 15. Family states she has always been thin. Liberalize diet once ok with surgery with protein supplements - Time Time Spent with patient: 25-34 minutes Critical Time spent with patient: 15-24 minutes Medications reviewed and adjusted accordingly: Yes Anticipated discharge: SNF
[2016-06-30] MEDS: BUPROPION HCL 75 MG TABLET PO SCH (09:26)
[2016-06-30] MEDS: FAMOTIDINE INJ/PF 20 MG/2 ML SDV IV SCH ×2 (09:26→21:41)
--- NOTE | 2016-06-30 14:49 | PDOC PROGRESS REPORT ---
Subjective Progress Note for:: 06/30/16 Subjective:: denies N/V. +flatus, stool. Tima clears. Physical Exam Vital Signs: Temp Pulse Resp BP Pulse Ox 97.9 F 81 17 177/82 H 100 06/30/16 11:14 06/30/16 11:14 06/30/16 11:14 06/30/16 11:14 06/30/16 11:14 Intake & Output 06/29/16 06/30/16 07/01/16 06:59 06:59 06:59 Intake Total 1150 320 750 Output Total 1275 300 500 Balance -125 20 250 Weight 43.8 kg 43.8 kg General appearance: PRESENT: no acute distress Head exam: PRESENT: normocephalic Eye exam: PRESENT: EOMI GI/Abdominal exam: PRESENT: distended - very minimal distention vs baseline, normal bowel sounds, soft, other - healthy ostomy with flatus.. ABSENT: tenderness Neurological exam: PRESENT: alert, oriented to person, oriented to time. ABSENT : oriented to place, oriented to situation Psychiatric exam: PRESENT: appropriate affect, normal mood Results Laboratory Results: 06/29/16 05:35 06/29/16 05:35 Impressions: Chest X-Ray 06/25/16 00:00 IMPRESSION: NO ACUTE RADIOGRAPHIC FINDING IN THE CHEST.Nasogastric tube is present with tip overlying the body of the stomach, the side port is near the GE junction and could be advanced 5 to 6 cm for more ideal placement. Abdomen/Pelvis CT 06/25/16 18:27 IMPRESSION: Free fluid throughout the small bowel mesentery a with twisting appearance of the mesentery and its vessels in the left lower quadrant, seen best on images 30-45, raising the concern for possible internal hernia. No dilated small bowel, though there are multiple fluid-filled loops present in the deep pelvis. Consider surgical consultation. Abdomen X-Ray 06/26/16 07:00 IMPRESSION: Gaseous distention of a loop of colon extending into the pelvis as noted above. The possibility of a developing obstruction including a sigmoid volvulus should be considered. Otherwise a nonspecific intestinal bowel gas pattern is seen. Other findings as noted above Assessment & Plan - Diagnosis (1) Small bowel obstruction Is this a current diagnosis for this admission?: YesPlan: Tolerating clears. Will advance to full liquids.
--- NOTE | 2016-06-30 15:44 | PDOC PROGRESS REPORT ---
Subjective Progress Note for:: 06/30/16 Subjective:: The patient was seen earlier today on rounds. The patient denies any nausea, vomiting, diarrhea, shortness of breath, dizziness, chest pain, heart palpitations, fevers, or chills. The patient has remained afebrile. Blood pressures have been in a good range. When prompted the patient voices no other concerns at this time. Review of systems: The rest of the review of systems is negative. Physical Exam Vital Signs: Temp Pulse Resp BP Pulse Ox 97.9 F 81 17 177/82 H 100 06/30/16 11:14 06/30/16 11:14 06/30/16 11:14 06/30/16 11:14 06/30/16 11:14 Intake & Output 06/28/16 06/29/16 06/30/16 23:59 23:59 23:59 Intake Total 2301 720 750 Output Total 1800 875 500 Balance 501 -155 250 Weight 43.8 kg 43.8 kg General appearance: PRESENT: no acute distress, cooperative, well-developed, well-nourished Head exam: PRESENT: atraumatic, normocephalic Eye exam: PRESENT: conjunctiva pink, EOMI, PERRLA. ABSENT: scleral icterus Ear exam: PRESENT: normal external ear exam Mouth exam: PRESENT: moist, tongue midline Neck exam: ABSENT: carotid bruit, JVD, lymphadenopathy, thyromegaly Respiratory exam: PRESENT: clear to auscultation lia. ABSENT: rales, rhonchi, wheezes Cardiovascular exam: PRESENT: RRR. ABSENT: diastolic murmur, rubs, systolic murmur Pulses: PRESENT: normal dorsalis pedis pul Vascular exam: PRESENT: normal capillary refill GI/Abdominal exam: PRESENT: normal bowel sounds, soft. ABSENT: distended, guarding, mass, organolmegaly, rebound, tenderness Rectal exam: PRESENT: deferred Extremities exam: PRESENT: full ROM. ABSENT: calf tenderness, clubbing, pedal edema Neurological exam: PRESENT: alert, awake, oriented to person, oriented to place , oriented to time, oriented to situation, CN II-XII grossly intact. ABSENT: motor sensory deficit Psychiatric exam: PRESENT: appropriate affect, normal mood. ABSENT: homicidal ideation, suicidal ideation Skin exam: PRESENT: dry, intact, warm. ABSENT: cyanosis, rash Results Laboratory Results: 06/29/16 05:35 06/29/16 05:35 Impressions: Chest X-Ray 06/25/16 00:00 IMPRESSION: NO ACUTE RADIOGRAPHIC FINDING IN THE CHEST.Nasogastric tube is present with tip overlying the body of the stomach, the side port is near the GE junction and could be advanced 5 to 6 cm for more ideal placement. Abdomen/Pelvis CT 06/25/16 18:27 IMPRESSION: Free fluid throughout the small bowel mesentery a with twisting appearance of the mesentery and its vessels in the left lower quadrant, seen best on images 30-45, raising the concern for possible internal hernia. No dilated small bowel, though there are multiple fluid-filled loops present in the deep pelvis. Consider surgical consultation. Abdomen X-Ray 06/26/16 07:00 IMPRESSION: Gaseous distention of a loop of colon extending into the pelvis as noted above. The possibility of a developing obstruction including a sigmoid volvulus should be considered. Otherwise a nonspecific intestinal bowel gas pattern is seen. Other findings as noted above Assessment & Plan - Diagnosis (1) Small bowel obstruction Is this a current diagnosis for this admission?: YesPlan: Do appreciate surgery input. The patient was able to eat her breakfast tray. Further diet advancement as per surgery. (2) Asthma Qualifiers: Asthma severity: mild intermittent Asthma complication type: uncomplicated Qualified Code(s): J45.20 - Mild intermittent asthma, uncomplicated Is this a current diagnosis for this admission?: Yes (3) Internal hernia Is this a current diagnosis for this admission?: Yes (4) Malnutrition of moderate degree Is this a current diagnosis for this admission?: Yes (5) Paranoia (psychosis) Is this a current diagnosis for this admission?: YesPlan: Resolved will continue Wellbutrin. (6) Hypokalemia Is this a current diagnosis for this admission?: YesPlan: Will replace this. (7) Iron (Fe) deficiency anemia Qualifiers: Iron deficiency anemia type: unspecified iron deficiency Qualified Code(s): D50.9 - Iron deficiency anemia, unspecified Is this a current diagnosis for this admission?: Yes (8) DVT prophylaxis Is this a current diagnosis for this admission?: Yes - Time Time Spent with patient: 25-34 minutes Medications reviewed and adjusted accordingly: Yes Anticipated discharge: Home Within: Other - Once cleared by surgery.
[2016-06-30] MEDS ORDERED: POTASSIUM CHLORIDE 20 MEQ/15 ML UDCUP PO ONE (16:00)
[2016-07-01 07:48] LABS: ANION GAP 13 (5-19); BLOOD UREA NITROGEN 16 mg/dL (7-20); CALCIUM 9.5 mg/dL (8.4-10.2); CARBON DIOXIDE 30 mmol/L (22-30); CHLORIDE 100 mmol/L (98-107); CREATININE RESULT 0.69 mg/dL (0.52-1.25); GLUCOSE 97 mg/dL (75-110)
[2016-07-01] MEDS: BUPROPION HCL 75 MG TABLET PO SCH (09:00)
[2016-07-01] MEDS: FAMOTIDINE INJ/PF 20 MG/2 ML SDV IV SCH (09:00)
--- NOTE | 2016-07-01 14:12 | PDOC DISCHARGE SUMMARY ---
General - Admit/Disc Date/PCP Admission Date/Primary Care Provider: 06/25/16 21:53 JOAQUIN ALEGRE MD Discharge Date: 07/01/16 - Discharge Diagnosis (1) Small bowel obstruction Is this a current diagnosis for this admission?: Yes (2) Dementia, senile, with, delirium Is this a current diagnosis for this admission?: Yes - Additional Information Resuscitation Status: Full Code Home Medications: Acetaminophen [Tylenol 325 mg Tablet] 1,000 mg PO Q8HP PRN 06/25/16 Ascorbic Acid [Vitamin C 500 mg Tablet] 250 mg PO DAILY 06/25/16 Bupropion HCl 75 mg PO DAILY 06/25/16 Calcium Carbonate/Vitamin D3 [Calcium 500-Vit D3 400 Tablet] 1 each PO DAILY 11/04 Ferrous Sulfate [Feosol 325 mg Tablet] 325 mg PO BID 06/25/16 Guar Gum [Benefiber] 2 tsp PO DAILY 06/25/16 Hydrocodone/Acetaminophen [[place] 5-325 Tablet] 1 tab PO Q6HP PRN 06/25/16 Ipratropium/Albuterol Sulfate [Combivent Respimat 4 gm Mdi] 1 puff PO Q6HP PRN 06/25/16 Multivitamin [Tab-A-Corrine] 1 each PO DAILY 06/25/16 Rivaroxaban [Xarelto 10 mg Tablet] 10 mg PO DAILY 06/25/16 Sennosides [Senna] 17.2 mg PO QHS 06/25/16 History of Present Illness History of Present Illness: LEANDRA LEZAMA is a 86 year old female emergency department by ground rescue from extended care facility complaining of abdominal pain acute onset worse over the last 12 hours, decreased and no colostomy output. [facility] where she had a CT scan of the abdomen and pelvis without oral contrast which showed findings consistent with a small bowel obstruction possibly due to an internal hernia. Surgery is consulted and she was advised admission. Her past medical surgical history is significant for adenocarcinoma status post neoadjuvant chemoradiation followed by abdominal perineal resection Dr. Mike nagel, 2010. She is had several episodes of small bowel obstruction since then most recently September 2015, all managed nonoperatively. Patient reportedly was ambulating, mentating, taking care of her activities of daily living until recently. Per history of present illness is incomplete because she has received anti- emesis medication and is somewhat confused. Hospital Course Hospital Course: The patient was admitted on the evening of 06/25/2016 with small bowel obstruction and managed conservatively with nothing by mouth, IV fluids, NG tube to low intermittent suction. She had dementia/delirium. Internal medicine was consult at an assisted with management. Narcotics were avoided. The patient had gradual return of bowel function. NG tube was removed. Her diet was increased from clear liquids to full liquids to soft diet and she tolerated this well. She had no abdominal pain. On 07/01/2016 the patient was tolerating diet, ambulating, had no abdominal pain and had gas and stool in the ostomy bag. She was discharged back to [facility]. Physical Exam Vital Signs: Temp Pulse Resp BP Pulse Ox 97.4 F 96 16 160/80 H 100 07/01/16 11:18 07/01/16 11:18 07/01/16 11:18 07/01/16 11:18 07/01/16 11:18 Intake & Output 06/30/16 07/01/16 07/02/16 06:59 06:59 06:59 Intake Total 320 2046 Output Total 300 500 Balance 20 1546 Weight 43.8 kg 42.6 kg General appearance: PRESENT: no acute distress, thin Eye exam: PRESENT: EOMI, other - Glasses Mouth exam: PRESENT: tongue midline Respiratory exam: PRESENT: unlabored GI/Abdominal exam: PRESENT: normal bowel sounds, soft, other - Had gas and stool in the ostomy bag. The ostomy was easily digitalized. No peristomal hernia. Finger extends well down beneath the fascia. Small stool ball is felt at the fingertip. New ostomy appliance was placed on the afternoon of 2016.. ABSENT: distended, tenderness Musculoskeletal exam: PRESENT: ambulatory Neurological exam: PRESENT: alert, oriented to person, oriented to situation - Partially oriented, has moments of lucidity followed by confusion over details. Psychiatric exam: PRESENT: appropriate affect, normal mood Skin exam: ABSENT: jaundice Results Laboratory Results: 06/29/16 05:35 07/01/16 06:10 07/01/16 06:10 Sodium 143.0 Potassium 4.0 Chloride 100 Carbon Dioxide 30 Anion Gap 13 BUN 16 Creatinine 0.69 Est GFR ( Amer) > 60 Est GFR (Non-Af Amer) > 60 Glucose 97 Calcium 9.5 Impressions: Chest X-Ray 06/25/16 00:00 IMPRESSION: NO ACUTE RADIOGRAPHIC FINDING IN THE CHEST.Nasogastric tube is present with tip overlying the body of the stomach, the side port is near the GE junction and could be advanced 5 to 6 cm for more ideal placement. Abdomen/Pelvis CT 06/25/16 18:27 IMPRESSION: Free fluid throughout the small bowel mesentery a with twisting appearance of the mesentery and its vessels in the left lower quadrant, seen best on images 30-45, raising the concern for possible internal hernia. No dilated small bowel, though there are multiple fluid-filled loops present in the deep pelvis. Consider surgical consultation. Abdomen X-Ray 06/26/16 07:00 IMPRESSION: Gaseous distention of a loop of colon extending into the pelvis as noted above. The possibility of a developing obstruction including a sigmoid volvulus should be considered. Otherwise a nonspecific intestinal bowel gas pattern is seen. Other findings as noted above Provider notes: The patient had no evidence of internal hernia or sigmoid volvulus clinically. Specifically with regards to sigmoid volvulus, most or all of her sigmoid has been resected as she is status post APR. Status: Image reviewed by me Plan Discharge Plan: Discharge back to [facility]. Try to maintain familiar environment and routine. Avoid high residue foods. Favor soft foods and liquids. Return to clinic when necessary.
[2016-07-01 16:21] VITALS: BP 167/90
--- NOTE | 2016-07-02 09:14 | PDOC PROGRESS REPORT ---
Subjective Progress Note for:: 07/01/16 Subjective:: The patient was seen earlier today on rounds. The patient denies any nausea, vomiting, diarrhea, shortness of breath, dizziness, chest pain, heart palpitations, fevers, or chills. The patient has remained afebrile. Blood pressures have been in a good range. When prompted the patient voices no other concerns at this time. Review of systems: The rest of the review of systems is negative. Physical Exam Vital Signs: Temp Pulse Resp BP Pulse Ox 97.7 F 98 14 167/90 H 100 07/01/16 15:48 07/01/16 15:48 07/01/16 15:48 07/01/16 15:48 07/01/16 15:48 Intake & Output 06/29/16 06/30/16 07/01/16 23:59 23:59 23:59 Intake Total 720 2046 Output Total 875 500 Balance -155 1546 Weight 43.8 kg 42.6 kg General appearance: PRESENT: no acute distress, well-developed, well-nourished Head exam: PRESENT: atraumatic, normocephalic Eye exam: PRESENT: conjunctiva pink, EOMI, PERRLA. ABSENT: scleral icterus Ear exam: PRESENT: normal external ear exam Mouth exam: PRESENT: moist, tongue midline Neck exam: ABSENT: carotid bruit, JVD, lymphadenopathy, thyromegaly Respiratory exam: PRESENT: clear to auscultation lia. ABSENT: rales, rhonchi, wheezes Cardiovascular exam: PRESENT: RRR. ABSENT: diastolic murmur, rubs, systolic murmur Pulses: PRESENT: normal dorsalis pedis pul Vascular exam: PRESENT: normal capillary refill GI/Abdominal exam: PRESENT: normal bowel sounds, soft. ABSENT: distended, guarding, mass, organolmegaly, rebound, tenderness Rectal exam: PRESENT: deferred Extremities exam: PRESENT: full ROM. ABSENT: calf tenderness, clubbing, pedal edema Neurological exam: PRESENT: alert, awake, oriented to person, oriented to place , oriented to time, oriented to situation, CN II-XII grossly intact. ABSENT: motor sensory deficit Psychiatric exam: PRESENT: appropriate affect, normal mood. ABSENT: homicidal ideation, suicidal ideation Skin exam: PRESENT: dry, intact, warm. ABSENT: cyanosis, rash Results Laboratory Results: 06/29/16 05:35 07/01/16 06:10 07/01/16 06:10 Sodium 143.0 Potassium 4.0 Chloride 100 Carbon Dioxide 30 Anion Gap 13 BUN 16 Creatinine 0.69 Est GFR ( Amer) > 60 Est GFR (Non-Af Amer) > 60 Glucose 97 Calcium 9.5 Impressions: Chest X-Ray 06/25/16 00:00 IMPRESSION: NO ACUTE RADIOGRAPHIC FINDING IN THE CHEST.Nasogastric tube is present with tip overlying the body of the stomach, the side port is near the GE junction and could be advanced 5 to 6 cm for more ideal placement. Abdomen/Pelvis CT 06/25/16 18:27 IMPRESSION: Free fluid throughout the small bowel mesentery a with twisting appearance of the mesentery and its vessels in the left lower quadrant, seen best on images 30-45, raising the concern for possible internal hernia. No dilated small bowel, though there are multiple fluid-filled loops present in the deep pelvis. Consider surgical consultation. Abdomen X-Ray 06/26/16 07:00 IMPRESSION: Gaseous distention of a loop of colon extending into the pelvis as noted above. The possibility of a developing obstruction including a sigmoid volvulus should be considered. Otherwise a nonspecific intestinal bowel gas pattern is seen. Other findings as noted above Assessment & Plan - Diagnosis (1) Small bowel obstruction Is this a current diagnosis for this admission?: Yes (2) Asthma Qualifiers: Asthma severity: mild intermittent Asthma complication type: uncomplicated Qualified Code(s): J45.20 - Mild intermittent asthma, uncomplicated Is this a current diagnosis for this admission?: Yes (3) Internal hernia Is this a current diagnosis for this admission?: Yes (4) Malnutrition of moderate degree Is this a current diagnosis for this admission?: Yes (5) Paranoia (psychosis) Is this a current diagnosis for this admission?: Yes (6) Hypokalemia Is this a current diagnosis for this admission?: Yes (7) Iron (Fe) deficiency anemia Qualifiers: Iron deficiency anemia type: unspecified iron deficiency Qualified Code(s): D50.9 - Iron deficiency anemia, unspecified Is this a current diagnosis for this admission?: Yes (8) DVT prophylaxis Is this a current diagnosis for this admission?: Yes - Time Time Spent with patient: Less than 15 minutes Anticipated discharge: SNF Within: when bed available Disposition: The patient has been cleared for discharge from a medical perspective to return to SNIF. Will sign off at this time I do appreciate the surgicalist for allowing the hospitalist which is been in the care of this patient.
== END 2016-07-01 17:35 | DRG 394 ==
LOC: ER 17:53 → EH 20:39 → UNDOADMIN 20:39 → EH 21:53 → 4S 06-26 00:11
PROVIDERS: ADMIT Surgery; ATTEND Surgery
DX: K46.0 Unspecified abdominal hernia with obstruction, without gangrene (principal); E44.0 Moderate protein-calorie malnutrition; Z68.1 Body mass index [BMI] 19.9 or less, adult; F05 Delirium due to known physiological condition; E87.6 Hypokalemia; J45.909 Unspecified asthma, uncomplicated; F22 Delusional disorders; D50.9 Iron deficiency anemia, unspecified; F03.90 Unspecified dementia, unspecified severity, without behavioral disturbance, psychotic disturbance, mood disturbance, and anxiety; F41.9 Anxiety disorder, unspecified; Z79.01 Long term (current) use of anticoagulants; Z93.3 Colostomy status; Z85.038 Personal history of other malignant neoplasm of large intestine; Z85.820 Personal history of malignant melanoma of skin; Z90.49 Acquired absence of other specified parts of digestive tract
CPT/HCPCS: 36415; 71010; 74020; 74177; 80048; 80053; 81001; 83690; 83735; 85025; 85027; 99284; J1170; J1630; J2060; J2270; J2405; J2550; J3475; J3480; J7030; S0028

== ENCOUNTER → 2016-11-23 | Outpatient (CLI) | payer MEDICARE, OTHER ==
[2016-11-23 12:49] LABS: ABSOLUTE BASOPHILS # (AUTO) 0.1 10^3/uL (0.0-0.2); ABSOLUTE EOSINOPHILS # (AUTO) 0.1 10^3/uL (0.0-0.6); ABSOLUTE LYMPHOCYTES (AUTO) 0.8 10^3/uL (0.5-4.7); ABSOLUTE MONOCYTES (AUTO) 0.4 10^3/uL (0.1-1.4); ABSOLUTE NEUT (AUTO) 4.2 10^3/uL (1.7-8.2); BASOPHILS % (AUTO) 1.1 % (0-2); EOSINOPHILS % (AUTO) 1.7 % (0-6); HEMATOCRIT 37.8 % (36.0-47.0); HEMOGLOBIN 12.3 g/dL (12.0-15.5); HGB HCT DIFFERENCE -0.9; LYMPHOCYTES % (AUTO) 14.6 % (13-45); MEAN CORPUSCULAR HGB CONC 32.6 g/dL (32.0-36.0); MEAN CORPUSCULAR VOLUME 92 fl (80-97); MONOCYTES % (AUTO) 7.1 % (3-13); RED BLOOD COUNT 4.11 10^6/uL (3.72-5.28); RED CELL DISTRIBUTION WIDTH 15.7 % (11.5-14.0); SEGMENTED NEUTROPHILS % (AUTO) 75.5 % (42-78); WHITE BLOOD COUNT 5.5 10^3/uL (4.0-10.5)
--- NOTE | 2016-11-23 12:49 | RADIOLOGY REPORT (SQ) ---
EXAM DESCRIPTION: PELVIS AP COMPLETED DATE/TIME: 11/23/2016 12:41 pm REASON FOR STUDY: PRESSURE ULCER SACRAL L89.153 PRESSURE ULCER OF SACRAL REGION, STAGE 3 COMPARISON: None. NUMBER OF VIEWS: One view TECHNIQUE: AP Pelvis LIMITATIONS: None. FINDINGS: MINERALIZATION: Normal. HIPS: There are postsurgical changes in the right hip with a total prosthesis in place. PELVIS AND SACRUM: No acute fracture or dislocation. No worrisome bone lesions. PUBIS AND ISCHIUM: No acute fracture. LOWER LUMBAR SPINE: No significant findings as visualized. SOFT TISSUES: No findings. OTHER: No other significant finding. IMPRESSION: No acute findings. No conventional radiographic evidence of osteomyelitis. TECHNICAL DOCUMENTATION: JOB ID: [id number] [employer]- All Rights Reserved
[2016-11-23 13:20] LABS: ALANINE AMINOTRANSFERASE 29 U/L (9-52); ALBUMIN 3.9 g/dL (3.5-5.0); ALKALINE PHOSPHATASE 109 U/L (38-126); ANION GAP 11 (5-19); ASPARTATE AMINO TRANSFERASE 30 U/L (14-36); BILIRUBIN,DIRECT 0.3 mg/dL (0.0-0.4); BILIRUBIN,TOTAL 0.6 mg/dL (0.2-1.3); BLOOD UREA NITROGEN 22 mg/dL (7-20); CALCIUM 9.8 mg/dL (8.4-10.2); CARBON DIOXIDE 27 mmol/L (22-30); CHLORIDE 105 mmol/L (98-107); CREATININE RESULT 0.96 mg/dL (0.52-1.25); GLUCOSE 86 mg/dL (75-110); SODIUM 142.6 mmol/L (137-145); TOTAL PROTEIN 7.2 g/dL (6.3-8.2)
[2016-11-23 13:25] LABS: C-REACTIVE PROTEIN < 5.0 mg/L (<10.0)
[2016-11-23 13:38] LABS: ERYTHROCYTE SEDIMENTATION RATE 23 mm/hr (0-30)
== END ==
LOC: WC 12:05
PROVIDERS: ATTEND Plastic Surgery
DX: L89.153 Pressure ulcer of sacral region, stage 3 (principal)
CPT/HCPCS: 36415; 72170; 80053; 85025; 85652; 86140

== ENCOUNTER → 2017-02-15 | Outpatient (CLI) | payer MEDICARE, OTHER ==
--- NOTE | 2017-02-15 11:32 | RADIOLOGY REPORT (SQ) ---
EXAM DESCRIPTION: PELVIS AP COMPLETED DATE/TIME: 02/15/2017 11:18 am REASON FOR STUDY: PRESSURE ULCER OF SACRAL REGION, STAGE 3 L89.153 PRESSURE ULCER OF SACRAL REGION, STAGE 3 COMPARISON: AP pelvis 11/23/2016 Abdominal films 06/26/2016 CT abdomen pelvis 06/25/2016 NUMBER OF VIEWS: One view TECHNIQUE: AP Pelvis LIMITATIONS: None. FINDINGS: MINERALIZATION: Bones are osteopenic. HIPS: Right hip replacement unchanged. No lucency around the hardware worrisome for loosening. Left hip unremarkable PELVIS AND SACRUM: No acute fracture or dislocation. No worrisome bone lesions. No gross demineraliz ation worrisome for osteomyelitis PUBIS AND ISCHIUM: No acute fracture. LOWER LUMBAR SPINE: Advanced degenerative disc changes L5-S1 with lower lumbar facet arthropathy at L 4-5 and L5-S1 SOFT TISSUES: Left lower quadrant ostomy OTHER: No other significant finding. IMPRESSION: Osteopenic. No acute fracture. Right hip hardware intact. No gross aggressive deminer alization of the sacrum TECHNICAL DOCUMENTATION: JOB ID: [id number]- All Rights Reserved
[2017-02-15 12:35] LABS: ABSOLUTE LYMPHOCYTES (AUTO) 0.9 10^3/uL (0.5-4.7); ABSOLUTE MONOCYTES (AUTO) 0.5 10^3/uL (0.1-1.4); ABSOLUTE NEUT (AUTO) 3.1 10^3/uL (1.7-8.2); BASOPHILS % (AUTO) 0.7 % (0-2); EOSINOPHILS % (AUTO) 0.7 % (0-6); HEMATOCRIT 36.6 % (36.0-47.0); HEMOGLOBIN 12.7 g/dL (12.0-15.5); HGB HCT DIFFERENCE 1.5; MEAN CORPUSCULAR HEMOGLOBIN 31.8 pg (27.0-33.4); MEAN CORPUSCULAR HGB CONC 34.7 g/dL (32.0-36.0); MEAN CORPUSCULAR VOLUME 92 fl (80-97); MONOCYTES % (AUTO) 10.3 % (3-13); RED BLOOD COUNT 3.99 10^6/uL (3.72-5.28); RED CELL DISTRIBUTION WIDTH 15.3 % (11.5-14.0); SEGMENTED NEUTROPHILS % (AUTO) 69.3 % (42-78); WHITE BLOOD COUNT 4.5 10^3/uL (4.0-10.5)
[2017-02-15 13:09] LABS: ALANINE AMINOTRANSFERASE 27 U/L (9-52); ALBUMIN 3.9 g/dL (3.5-5.0); ALKALINE PHOSPHATASE 101 U/L (38-126); ANION GAP 9 (5-19); ASPARTATE AMINO TRANSFERASE 33 U/L (14-36); BILIRUBIN,DIRECT 0.4 mg/dL (0.0-0.4); BILIRUBIN,TOTAL 0.5 mg/dL (0.2-1.3); BLOOD UREA NITROGEN 22 mg/dL (7-20); CALCIUM 9.9 mg/dL (8.4-10.2); CARBON DIOXIDE 32 mmol/L (22-30); CHLORIDE 102 mmol/L (98-107); CREATININE RESULT 0.97 mg/dL (0.52-1.25); GLUCOSE 124 mg/dL (75-110); POTASSIUM 4.4 mmol/L (3.6-5.0); SODIUM 142.5 mmol/L (137-145); TOTAL PROTEIN 6.9 g/dL (6.3-8.2)
[2017-02-15 13:10] LABS: ERYTHROCYTE SEDIMENTATION RATE 21 mm/hr (0-30)
[2017-02-15 13:14] LABS: C-REACTIVE PROTEIN < 5.0 mg/L (<10.0)
== END ==
LOC: OD 10:35
PROVIDERS: ATTEND Plastic Surgery
DX: L89.153 Pressure ulcer of sacral region, stage 3 (principal)
CPT/HCPCS: 36415; 72170; 80053; 85025; 85652; 86140

== ENCOUNTER → 2017-04-16 | Outpatient (CLI) | payer MEDICARE, OTHER ==
--- NOTE | 2017-04-16 14:00 | RADIOLOGY REPORT (SQ) ---
EXAM DESCRIPTION: PELVIS AP COMPLETED DATE/TIME: 04/16/2017 1:45 pm REASON FOR STUDY: PRESSURE ULCER OF SACRAL REGION, STAGE 3 L89.153 PRESSURE ULCER OF SACRAL REGION, STAGE 3 COMPARISON: 02/15/2017. NUMBER OF VIEWS: One view TECHNIQUE: AP Pelvis LIMITATIONS: None. FINDINGS: MINERALIZATION: Normal. HIPS: No acute fracture or dislocation. Stable right hip prosthesis. No worrisome bone lesions. PELVIS AND SACRUM: No acute fracture or dislocation. No worrisome bone lesions. PUBIS AND ISCHIUM: No acute fracture. LOWER LUMBAR SPINE: No significant findings as visualized. SOFT TISSUES: No findings. OTHER: No other significant finding. IMPRESSION: STABLE RIGHT HIP PROSTHESIS. NO SIGNIFICANT FINDINGS. TECHNICAL DOCUMENTATION: JOB ID: [id number] [employer]- All Rights Reserved
== END ==
LOC: OD 13:29
PROVIDERS: ATTEND Plastic Surgery
DX: L89.153 Pressure ulcer of sacral region, stage 3 (principal)
CPT/HCPCS: 72170

== ENCOUNTER 2017-11-17 21:30 | Emergency (ER) | payer MEDICARE, OTHER ==
[2017-11-17 21:43] VITALS: BP 130/61
[2017-11-17 23:13] LABS: ABSOLUTE BASOPHILS # (AUTO) 0.1 10^3/uL (0.0-0.2); ABSOLUTE MONOCYTES (AUTO) 0.7 10^3/uL (0.1-1.4); ABSOLUTE NEUT (AUTO) 15.1 10^3/uL (1.7-8.2); BASOPHILS % (AUTO) 0.4 % (0-2); EOSINOPHILS % (AUTO) 0.1 % (0-6); HEMATOCRIT 44.2 % (36.0-47.0); HEMOGLOBIN 15.3 g/dL (12.0-15.5); LYMPHOCYTES % (AUTO) 5.9 % (13-45); MEAN CORPUSCULAR HEMOGLOBIN 31.7 pg (27.0-33.4); MEAN CORPUSCULAR HGB CONC 34.6 g/dL (32.0-36.0); MEAN CORPUSCULAR VOLUME 92 fl (80-97); PLATELET COUNT 296 10^3/uL (150-450); RED BLOOD COUNT 4.81 10^6/uL (3.72-5.28); RED CELL DISTRIBUTION WIDTH 14.6 % (11.5-14.0); SEGMENTED NEUTROPHILS % (AUTO) 89.6 % (42-78); TOTAL CELLS COUNTED % (AUTO) 100 %; WHITE BLOOD COUNT 16.8 10^3/uL (4.0-10.5)
[2017-11-17 23:19] LABS: ALANINE AMINOTRANSFERASE 28 U/L (9-52); ALBUMIN 4.6 g/dL (3.5-5.0); ALKALINE PHOSPHATASE 115 U/L (38-126); ANION GAP 16 (5-19); ASPARTATE AMINO TRANSFERASE 34 U/L (14-36); BILIRUBIN,DIRECT 0.4 mg/dL (0.0-0.4); BILIRUBIN,TOTAL 0.8 mg/dL (0.2-1.3); BLOOD UREA NITROGEN 28 mg/dL (7-20); CALCIUM 10.7 mg/dL (8.4-10.2); CARBON DIOXIDE 28 mmol/L (22-30); CHLORIDE 103 mmol/L (98-107); GLUCOSE 204 mg/dL (75-110); LIPASE 182.4 U/L (23-300); SODIUM 147.4 mmol/L (137-145); TOTAL PROTEIN 8.2 g/dL (6.3-8.2)
--- NOTE | 2017-11-17 23:38 | RADIOLOGY REPORT (SQ) ---
EXAM DESCRIPTION: 2 views of the chest CLINICAL HISTORY: cough COMPARISON: 06/25/2016 FINDINGS: Frontal and lateral views of the chest. Atherosclerotic calcification of the thoracic aorta. Heart is not enlarged. No consolidation, pneumothorax, or pleural effusion. No displaced rib fractures identified. Upper abdominal soft tissues are unremarkable. IMPRESSION: 1. No acute pulmonary process identified.
[2017-11-18] MEDS ORDERED: NORMAL SALINE 1000 ML 1,000 ML IV ONE (01:53)
--- NOTE | 2017-11-18 02:06 | RADIOLOGY REPORT (SQ) ---
EXAM DESCRIPTION: Acute abdominal series CLINICAL HISTORY: abd pain COMPARISON: None. FINDINGS: Single view chest with upright and spine views of the abdomen. Atherosclerotic calcification of the thoracic aorta. Heart is not enlarged. No consolidation, pneumothorax, or pleural effusion. No free intraperineal air. Right total hip arthroplasty. Air-filled loops of large and small bowel throughout the abdomen. No definite abnormal calcifications. No definite organomegaly. IMPRESSION: 1. No acute pulmonary process. Nonobstructive bowel gas pattern.
[2017-11-18 03:01] LABS: APPEARANCE,URINE SLIGHTLY-CLOUDY; BILIRUBIN,URINE NEGATIVE (NEGATIVE); COLOR,URINE YELLOW; GLUCOSE, URINE 50 mg/dL (NEGATIVE); KETONES,URINE 20 mg/dL (NEGATIVE); LEUKOCYTE ESTERASE,URINE NEGATIVE (NEGATIVE); NITRITE,URINE NEGATIVE (NEGATIVE); PROTEIN,URINE 30 mg/dL (NEGATIVE); URINE SPECIFIC GRAVITY 1.017; UROBILINOGEN,URINE NEGATIVE mg/dL (<2.0)
[2017-11-18] MEDS ORDERED: ONDANSETRON ODT 4 MG TAB (6 TAB/ER DISP) PO PRN (03:07)
--- NOTE | 2017-11-18 04:49 | ER Document Report ---
ED General - General Chief Complaint: Abdominal Pain Stated Complaint: ABDOMINAL PAIN Time Seen by Provider: 11/18/17 01:11 TRAVEL OUTSIDE OF THE [place] IN LAST 30 DAYS: No - HPI Patient complains to provider of: Abdominal pain Notes: Patient coming in with nonspecific abdominal pain ongoing for approximately 12 hours along with nausea vomiting no diarrhea patient has history of colon cancer with colostomy. Patient states no change in the output of her colostomy. Denies any fevers or chills. Denies any recent antibiotics. Patient resting company upon my evaluation stating that now she feels much better. - Related Data Allergies/Adverse Reactions: No Known Allergies Allergy (Verified 06/25/16 18:09) Past Medical History - Social History Smoking Status: Unknown if Ever Smoked Family History: Reviewed & Not Pertinent Patient has suicidal ideation: No Patient has homicidal ideation: No - Past Medical History Cardiac Medical History: Denies: Hx Congestive Heart Failure, Hx Coronary Artery Disease, Hx DVT, Hx Heart Attack, Hx Hypercholesterolemia, Hx Hypertension, Hx Pulmonary Embolism Pulmonary Medical History: Reports: Hx Pneumonia - hx of Denies: Hx Asthma, Hx Bronchitis, Hx COPD, Hx Tuberculosis Neurological Medical History: Denies: Hx Cerebrovascular Accident, Hx Seizures Endocrine Medical History: Denies: Hx Diabetes Mellitus Type 1, Hx Diabetes Mellitus Type 2, Hx Hyperthyroidism, Hx Hypothyroidism Renal/ Medical History: Denies: Hx Ovarian Cysts, Hx Peritoneal Dialysis, Hx Pelvic Inflammatory Disease Malignancy Medical History: Reports: Hx Colorectal Cancer, Hx Skin Cancer - Melanoma, left forearm, status post excision of same.. Denies: Hx Breast Cancer , Hx Cervical Cancer, Hx Ovarian Cancer GI Medical History: Reports: Hx Colonoscopy, Hx Endoscopy. Denies: Hx Cirrhosis , Hx Crohn's Disease, Hx Gastroesophageal Reflux Disease, Hx Hepatitis, Hx Hiatal Hernia, Hx Irritable Bowel, Hx Liver Failure, Hx Pancreatitis, Hx Ulcer Musculoskeltal Medical History: Denies Hx Arthritis Psychiatric Medical History: Reports: Hx Depression Infectious Medical History: Denies: Hx Hepatitis Past Surgical History: Reports: Hx Appendectomy, Hx Bowel Diversion, Hx Bowel Surgery, Hx Hysterectomy, Hx Ileostomy, Other - Abdominal perineal resection with permanent colostomy. Denies: Hx Section, Hx Cholecystectomy, Hx Colostomy, Hx Coronary Artery Bypass Graft, Hx Gastric Bypass Surgery, Hx Herniorrhaphy, Hx Mastectomy, Hx Open Heart Surgery, Hx Pacemaker, Hx Tonsillectomy, Hx Tubal Ligation - Immunizations Hx Diphtheria, Pertussis, Tetanus Vaccination: Yes Hx Pneumococcal Vaccination: 03/30/10 Review of Systems - Review of Systems Constitutional: No symptoms reported EENT: No symptoms reported Cardiovascular: No symptoms reported Respiratory: No symptoms reported Gastrointestinal: Abdominal pain, Nausea, Vomiting Genitourinary: No symptoms reported Female Genitourinary: No symptoms reported Musculoskeletal: No symptoms reported Skin: No symptoms reported Hematologic/Lymphatic: No symptoms reported Neurological/Psychological: No symptoms reported -: Yes All other systems reviewed and negative Physical Exam - Vital signs Vitals: Temp Pulse Resp BP Pulse Ox 95 F L 78 18 130/61 H 99 11/17/17 21:41 11/17/17 21:41 11/17/17 21:41 11/17/17 21:41 11/17/17 21:41 Interpretation: Normal - General General appearance: Appears well, Alert - HEENT Head: Normocephalic, Atraumatic Eyes: Normal Pupils: PERRL - Respiratory Respiratory status: No respiratory distress Chest status: Nontender Breath sounds: Normal Chest palpation: Normal - Cardiovascular Rhythm: Regular Heart sounds: Normal auscultation Murmur: No - Abdominal Inspection: Normal Distension: No distension Bowel sounds: Normal Tenderness: Nontender. No: Tender, McBurney's point, Nguyen's sign, Guarding, Rebound Organomegaly: No organomegaly - Back Back: Normal, Nontender - Extremities General upper extremity: Normal inspection, Nontender, Normal color, Normal ROM , Normal temperature General lower extremity: Normal inspection, Nontender, Normal color, Normal ROM , Normal temperature, Normal weight bearing. No: Annie's sign - Neurological Neuro grossly intact: Yes Cognition: Normal Orientation: AAOx4 [place] Coma Scale Eye Opening: Spontaneous Suzy Coma Scale Verbal: Oriented [place] Coma Scale Motor: Obeys Commands Suzy Coma Scale Total: 15 Speech: Normal Motor strength normal: LUE, RUE, LLE, RLE Sensory: Normal - Psychological Associated symptoms: Normal affect, Normal mood - Skin Skin Temperature: Warm Skin Moisture: Dry Skin Color: Normal Course - Re-evaluation Re-evalutation: 11/18/17 04:50 Slight leukocytosis and elevation of sodium more like the from vomiting and dehydration. Patient's lactic acid is negative abdominal examination is benign. A x-ray does not show any signs of obstructive pathology patient was able tolerate p.o. here. Urinalysis was also negative. Unclear etiology for the patient's nausea vomiting however able tolerate p.o. This will patient states to be discharged home patient agrees with plan to treat with Zofran and for her to follow-up bland diet - Vital Signs Vital signs: Temp Pulse Resp BP Pulse Ox 95 F L 78 18 130/61 H 99 11/17/17 21:41 11/17/17 21:41 11/17/17 21:41 11/17/17 21:41 11/17/17 21:41 - Laboratory Result Diagrams: 11/17/17 22:52 11/17/17 22:52 Laboratory results interpreted by me: 11/17/17 11/17/17 11/18/17 22:52 22:52 02:45 WBC 16.8 H RDW 14.6 H Seg Neutrophils % 89.6 H Lymphocytes % 5.9 L Absolute Neutrophils 15.1 H Sodium 147.4 H BUN 28 H Est GFR ( Amer) 49 L Est GFR (Non-Af Amer) 41 L Glucose 204 H Calcium 10.7 H Urine Protein 30 H Urine Glucose (UA) 50 H Urine Ketones 20 H Urine Blood SMALL H Discharge - Discharge Clinical Impression: Abdominal pain Qualifiers: Abdominal location: unspecified location Qualified Code(s): R10.9 - Unspecified abdominal pain Nausea & vomiting Qualifiers: Vomiting type: unspecified Vomiting Intractability: unspecified Qualified Code( s): R11.2 - Nausea with vomiting, unspecified Condition: Good Instructions: Abdominal Pain ([facility]), Vomiting ([facility]), Low Residue Diet ([facility]) Additional Instructions: Your laboratory studies not show any significant findings no signs of infection requiring antibiotics. I will give you medication to help out with any nausea will recommend a bland diet for the next few days nothing fried to think fatty nothing greasy. Also to avoid dairy products for the next 1224 hrs. Return to ER symptoms worsen. Prescriptions: Ondansetron [Zofran Odt] 4 mg PO Q6 PRN #30 tab.rapdis PRN Reason: For Nausea/Vomiting Referrals: DERRICK MAC MD [Primary Care Provider] - Follow up as needed
== END 2017-11-18 03:40 | disposition home or self-care (01) ==
LOC: ER 21:30
DX: R10.9 Unspecified abdominal pain (principal); R11.2 Nausea with vomiting, unspecified; Z85.038 Personal history of other malignant neoplasm of large intestine; Z93.3 Colostomy status; Z90.710 Acquired absence of both cervix and uterus
CPT/HCPCS: 99284; 96360; 36415; 83690; 85025; 80053; 81001; 83605; 74022; 71046; J7030; A9270

== ENCOUNTER → 2017-11-24 | Outpatient (CLI) | payer MEDICARE, OTHER ==
--- NOTE | 2017-11-24 16:25 | RADIOLOGY REPORT (SQ) ---
EXAM DESCRIPTION: HIP RIGHT AP/LATERAL COMPLETED DATE/TIME: 11/24/2017 3:57 pm REASON FOR STUDY: PAIN IN RIGHT HIP M25.551 PAIN IN RIGHT HIP COMPARISON: 05/24/2016. NUMBER OF VIEWS: Two views. TECHNIQUE: AP pelvis and additional frog-leg view of the right hip. LIMITATIONS: None. FINDINGS: MINERALIZATION: Normal. RIGHT HIP: Stable intact hip prosthesis. LEFT HIP: No fracture or dislocation. No worrisome bone lesions. PUBIS AND ISCHIUM: No fracture. PELVIS: No fracture. SACRUM: No fracture or dislocation. No worrisome bone lesions. LOWER LUMBAR SPINE: No fracture or dislocation. No worrisome bone lesions. No significant disc disea se. SOFT TISSUES: No findings. OTHER: No other significant finding. IMPRESSION: STABLE RIGHT HIP PROSTHESIS. NO SIGNIFICANT FINDINGS. TECHNICAL DOCUMENTATION: JOB ID: [id number] [employer]- All Rights Reserved Reading location - IP/workstation name: [email or web address]
== END ==
LOC: OD 15:40
PROVIDERS: ATTEND Internal Medicine
DX: M25.551 Pain in right hip (principal)

== ENCOUNTER → 2017-12-13 | Outpatient (CLI) | payer MEDICARE, OTHER ==
--- NOTE | 2017-12-13 16:43 | RADIOLOGY REPORT (SQ) ---
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 TECHNIQUE: CT scan of the abdomen and pelvis performed without intravenous contrast and with oral co ntrast. Images reviewed with lung, soft tissue, and bone windows. Reconstructed coronal and sagittal MPR images reviewed. All images stored on PACS. All CT scanners at this facility use dose modulation, iterative reconstruction, and/or weight based d osing when appropriate to reduce radiation dose to as low as reasonably achievable (ALARA). [facility]: Dose Right [facility]: CareDose [facility]: Dose Right [facility]: Teradose 4D [facility]: [employer] RADIATION DOSE: CT Rad equipment meets quality standard of care and radiation dose reduction techniq ues were employed. CTDIvol: 3.2 mGy. DLP: 151 mGy-cm.mGy. LIMITATIONS: None. FINDINGS: LOWER CHEST: No significant findings. No nodules or infiltrates. NON-CONTRASTED LIVER, SPLEEN, ADRENALS: Evaluation limited by lack of IV contrast. No identified sign ificant masses. PANCREAS: No masses. No peripancreatic inflammatory changes. GALLBLADDER: No identified stones by CT criteria. No inflammatory changes to suggest cholecystitis. RIGHT KIDNEY AND URETER: No suspicious masses. Assessment limited by lack of IV contrast. No signif icant calcifications. No hydronephrosis or hydroureter. LEFT KIDNEY AND URETER: No suspicious masses. Assessment limited by lack of IV contrast. No signifi cant calcifications. No hydronephrosis or hydroureter. AORTA AND RETROPERITONEUM: No aneurysm. No retroperitoneal masses or adenopathy. BOWEL AND PERITONEAL CAVITY: No obvious masses or inflammatory changes. No free fluid. APPENDIX: Normal. PELVIS, BLADDER, AND ABDOMINAL WALL:Stable surgical changes from resection of the rectosigmoid. Left lower quadrant colostomy of the descending colon. No abnormal masses. No free fluid. Bladder normal . BONES: No significant findings. Chronic degenerative changes in the spine. Right hip prosthesis. OTHER: Circumscribed oval mass in the right breast, unchanged since 2011. IMPRESSION: 1. STABLE SURGICAL CHANGES RELATED TO RESECTION OF THE RECTOSIGMOID COLON. 2. CIRCUMSCRIBED MASS IN THE RIGHT BREAST WHICH HAS BEEN STABLE AND UNCHANGED SINCE 2012. 3. NO OTHER SIGNIFICANT OR ACUTE PROCESS IN THE ABDOMEN OR PELVIS. COMMENT: Quality ID # [id number]: Final reports with documentation of one or more dose reduction techniques (e.g., Automated exposure control, adjustment of the mA and/or kV according to patient size, use of iterative reconstruction technique) TECHNICAL DOCUMENTATION: JOB ID: [id number] [employer]- All Rights Reserved Reading location - IP/workstation name: [email or web address]
== END ==
LOC: RAD 15:21
PROVIDERS: ATTEND Internal Medicine Gastroenterology
DX: R10.9 Unspecified abdominal pain (principal); R11.2 Nausea with vomiting, unspecified; Z85.048 Personal history of other malignant neoplasm of rectum, rectosigmoid junction, and anus; N63.0 Unspecified lump in unspecified breast
CPT/HCPCS: 74176

== ENCOUNTER 2019-05-01 15:10 | Emergency (ER) | payer MEDICARE, OTHER ==
[2019-05-01] MEDS ORDERED: FENTANYL CITRATE INJ/PF 100 MCG/2 ML AMPUL IV ONE (15:28)
[2019-05-01] MEDS ORDERED: ONDANSETRON HCL INJ/PF 4 MG/2 ML SDV IV ONE ×3 (15:29→22:34)
--- NOTE | 2019-05-01 15:34 | ER Document Report ---
ED Medical Screen (RME) - General Chief Complaint: Abdominal Pain Stated Complaint: ABDOMINAL PAIN Time Seen by Provider: 05/01/19 15:24 Primary Care Provider: DERRICK MAC MD [Primary Care Provider] - Follow up as needed Mode of Arrival: Wheelchair Information source: Patient Notes: Patient is a 89-year-old female with a colostomy presenting to the emergency department with severe abdominal pain. Patient reports she thinks she has a blockage. Patient is screaming and yelling in triage. Denies any fever, vomiting or diarrhea reports nausea. Patient is tachycardic and hypotensive, patient upgraded to DORON 2, charge nurse made aware, bed assignment received. I have greeted and performed a rapid initial assessment of this patient. A comprehensive ED assessment and evaluation of the patient, analysis of test results and completion of the medical decision making process will be conducted by additional ED providers. I have specifically instructed the patient or family members with the patient to immediately return to any nursing staff should anything change in the patient's condition or with their chief complaint. This medical record was dictated with voice recognizing software. There may be grammatical, syntax errors that are unintended. TRAVEL OUTSIDE OF THE [place] IN LAST 30 DAYS: No - Related Data Allergies/Adverse Reactions: No Known Allergies Allergy (Verified 06/25/16 18:09) Past Medical History - Social History Frequency of alcohol use: None Drug Abuse: None - Past Medical History Cardiac Medical History: Denies: Hx Congestive Heart Failure, Hx Coronary Artery Disease, Hx DVT, Hx Heart Attack, Hx Hypercholesterolemia, Hx Hypertension, Hx Pulmonary Embolism Pulmonary Medical History: Reports: Hx Pneumonia - hx of Denies: Hx Asthma, Hx Bronchitis, Hx COPD, Hx Tuberculosis Neurological Medical History: Denies: Hx Cerebrovascular Accident, Hx Seizures Endocrine Medical History: Denies: Hx Diabetes Mellitus Type 1, Hx Diabetes Mellitus Type 2, Hx Hyperthyroidism, Hx Hypothyroidism Renal/ Medical History: Denies: Hx Ovarian Cysts, Hx Peritoneal Dialysis, Hx Pelvic Inflammatory Disease Malignancy Medical History: Reports: Hx Colorectal Cancer, Hx Skin Cancer - Melanoma, left forearm, status post excision of same.. Denies: Hx Breast Cancer, Hx Cervical Cancer, Hx Ovarian Cancer GI Medical History: Reports: Hx Colonoscopy, Hx Endoscopy. Denies: Hx Cirrhosis, Hx Crohn's Disease, Hx Gastroesophageal Reflux Disease, Hx Hepatitis, Hx Hiatal Hernia, Hx Irritable Bowel, Hx Liver Failure, Hx Pancreatitis, Hx Ulcer Musculoskeltal Medical History: Denies Hx Arthritis Psychiatric Medical History: Reports: Hx Depression Infectious Medical History: Denies: Hx Hepatitis Past Surgical History: Reports: Hx Appendectomy, Hx Bowel Diversion, Hx Bowel Surgery, Hx Hysterectomy, Hx Ileostomy, Other - Abdominal perineal resection with permanent colostomy. Denies: Hx Section, Hx Cholecystectomy, Hx Colostomy, Hx Coronary Artery Bypass Graft, Hx Gastric Bypass Surgery, Hx Herniorrhaphy, Hx Mastectomy, Hx Open Heart Surgery, Hx Pacemaker, Hx Tonsillectomy, Hx Tubal Ligation - Immunizations Hx Diphtheria, Pertussis, Tetanus Vaccination: Yes Physical Exam - Vital signs Vitals: Temp Pulse Resp BP Pulse Ox 98.4 F 118 H 24 H 71/51 L 92 05/01/19 15:27 05/01/19 15:27 05/01/19 15:27 05/01/19 15:27 05/01/19 15:27 Course - Vital Signs Vital signs: Temp Pulse Resp BP Pulse Ox 98.4 F 118 H 24 H 71/51 L 92 05/01/19 15:27 05/01/19 15:27 05/01/19 15:27 05/01/19 15:27 05/01/19 15:27 Doctor's Discharge - Discharge Referrals: DERRICK MAC MD [Primary Care Provider] - Follow up as needed
[2019-05-01 16:12] LABS: ABSOLUTE BASOPHILS # (AUTO) 0.1 10^3/uL (0.0-0.2); ABSOLUTE LYMPHOCYTES (AUTO) 1.8 10^3/uL (0.5-4.7); ABSOLUTE MONOCYTES (AUTO) 0.6 10^3/uL (0.1-1.4); ABSOLUTE NEUT (AUTO) 6.6 10^3/uL (1.7-8.2); EOSINOPHILS % (AUTO) 0.5 % (0-6); HEMATOCRIT 34.9 % (36.0-47.0); HEMOGLOBIN 12.1 g/dL (12.0-15.5); LYMPHOCYTES % (AUTO) 19.4 % (13-45); MEAN CORPUSCULAR HEMOGLOBIN 31.7 pg (27.0-33.4); MEAN CORPUSCULAR HGB CONC 34.8 g/dL (32.0-36.0); MEAN CORPUSCULAR VOLUME 91 fl (80-97); MONOCYTES % (AUTO) 6.1 % (3-13); PLATELET COUNT 394 10^3/uL (150-450); RED BLOOD COUNT 3.83 10^6/uL (3.72-5.28); RED CELL DISTRIBUTION WIDTH 15.2 % (11.5-14.0); TOTAL CELLS COUNTED % (AUTO) 100 %; WHITE BLOOD COUNT 9.1 10^3/uL (4.0-10.5)
[2019-05-01 16:38] LABS: ALBUMIN 3.5 g/dL (3.5-5.0); ALKALINE PHOSPHATASE 120 U/L (38-126); ANION GAP 11 (5-19); ASPARTATE AMINO TRANSFERASE 29 U/L (14-36); BILIRUBIN,DIRECT 0.2 mg/dL (0.0-0.4); BILIRUBIN,TOTAL 0.6 mg/dL (0.2-1.3); BLOOD UREA NITROGEN 20 mg/dL (7-20); CALCIUM 9.3 mg/dL (8.4-10.2); CARBON DIOXIDE 25 mmol/L (22-30); CHLORIDE 105 mmol/L (98-107); GLUCOSE 203 mg/dL (75-110); POTASSIUM 3.6 mmol/L (3.6-5.0); TOTAL PROTEIN 6.7 g/dL (6.3-8.2)
--- NOTE | 2019-05-01 16:48 | RADIOLOGY REPORT (SQ) ---
EXAM DESCRIPTION: KUB/ABDOMEN (SINGLE VIEW) COMPLETED DATE/TIME: 05/01/2019 4:36 pm REASON FOR STUDY: EVAL FOR OBSTRUCTION COMPARISON: 11/18/2017 NUMBER OF VIEWS: One view. TECHNIQUE: Supine radiographic image of the abdomen acquired. LIMITATIONS: None. FINDINGS: BOWEL GAS PATTERN: There is mild gastric distention. There is mild distention of large an d small bowel. Similar findings were noted on prior study. Ostomy site is noted in the left mid abd omen. CALCIFICATIONS: No suspicious calcifications. SOFT TISSUES: No gross mass or suggestion of organomegaly. HARDWARE: None in the abdomen. BONES: No acute fracture. No worrisome bone lesions. OTHER: No other significant finding. IMPRESSION: Mild gastric, small bowel and colonic distention. Similar findings were noted on prior study. TECHNICAL DOCUMENTATION: JOB ID: [id number] [employer]- All Rights Reserved Reading location - IP/workstation name: [email or web address]
[2019-05-01 17:11] LABS: APPEARANCE,URINE SLIGHTLY-CLOUDY; BILIRUBIN,URINE NEGATIVE (NEGATIVE); COLOR,URINE AMBER; GLUCOSE, URINE NEGATIVE (NEGATIVE); KETONES,URINE TRACE mg/dL (NEGATIVE); PROTEIN,URINE 100 mg/dL (NEGATIVE)
[2019-05-01] MEDS ORDERED: MORPHINE SULFATE 10 MG/ML INJ IV ONE ×2 (18:30→23:12)
[2019-05-01] MEDS ORDERED: NORMAL SALINE 1000 ML 1,000 ML IV ONE (19:20)
--- NOTE | 2019-05-01 19:21 | ER Document Report ---
ED GI/ - General Chief Complaint: Abdominal Pain Stated Complaint: ABDOMINAL PAIN Time Seen by Provider: 05/01/19 15:24 Primary Care Provider: JOAQUIN ALEGRE MD [Primary Care Provider] - Follow up in 3-5 days Mode of Arrival: Wheelchair Notes: Patient is an 89-year-old female who presents to the emergency department with a chief complaint of abdominal pain. Patient reports that she had diarrhea yesterday, but according to the daughter, she has not had a bowel movement today. Patient has history of colon cancer and has a colostomy. Patient states that the pain is severe and it feels like she has a blockage, like she has had before. Patient denies any fever, body aches, chills, or any other symptoms. Patient denies any chest pain, difficulty breathing, or shortness of breath. Denies any epigastric pain. TRAVEL OUTSIDE OF THE [place] IN LAST 30 DAYS: No - Related Data Allergies/Adverse Reactions: No Known Allergies Allergy (Verified 06/25/16 18:09) Past Medical History - General Information source: Patient - Social History Smoking Status: Unknown if Ever Smoked Frequency of alcohol use: None Drug Abuse: None Family History: Reviewed & Not Pertinent Patient has suicidal ideation: No Patient has homicidal ideation: No - Past Medical History Cardiac Medical History: Denies: Hx Congestive Heart Failure, Hx Coronary Artery Disease, Hx DVT, Hx Heart Attack, Hx Hypercholesterolemia, Hx Hypertension, Hx Pulmonary Embolism Pulmonary Medical History: Reports: Hx Pneumonia - hx of Denies: Hx Asthma, Hx Bronchitis, Hx COPD, Hx Tuberculosis Neurological Medical History: Denies: Hx Cerebrovascular Accident, Hx Seizures Endocrine Medical History: Denies: Hx Diabetes Mellitus Type 1, Hx Diabetes Mellitus Type 2, Hx Hyperthyroidism, Hx Hypothyroidism Renal/ Medical History: Denies: Hx Ovarian Cysts, Hx Peritoneal Dialysis, Hx Pelvic Inflammatory Disease Malignancy Medical History: Reports: Hx Colorectal Cancer, Hx Skin Cancer - Melanoma, left forearm, status post excision of same.. Denies: Hx Breast Cancer, Hx Cervical Cancer, Hx Ovarian Cancer GI Medical History: Reports: Hx Colonoscopy, Hx Endoscopy. Denies: Hx Cirrhosis, Hx Crohn's Disease, Hx Gastroesophageal Reflux Disease, Hx Hepatitis, Hx Hiatal Hernia, Hx Irritable Bowel, Hx Liver Failure, Hx Pancreatitis, Hx Ulcer Musculoskeletal Medical History: Denies Hx Arthritis Psychiatric Medical History: Reports: Hx Depression Infectious Medical History: Denies: Hx Hepatitis Past Surgical History: Reports: Hx Abdominal Surgery, Hx Appendectomy, Hx Bowel Diversion, Hx Bowel Surgery, Hx Hysterectomy, Hx Ileostomy, Other - Abdominal perineal resection with permanent colostomy. Denies: Hx Section, Hx Cholecystectomy, Hx Colostomy, Hx Coronary Artery Bypass Graft, Hx Gastric Bypass Surgery, Hx Herniorrhaphy, Hx Mastectomy, Hx Open Heart Surgery, Hx Pacemaker, Hx Tonsillectomy, Hx Tubal Ligation - Immunizations Hx Diphtheria, Pertussis, Tetanus Vaccination: Yes Hx Pneumococcal Vaccination: 03/30/10 Review of Systems - Review of Systems Notes: REVIEW OF SYSTEMS: CONSTITUTIONAL : Denies recent illness. Denies recent unintentional weight loss. Denies fever, chills, or sweats. EENT: Denies eye, ear, throat, or mouth pain, discharge, or symptoms. Denies nasal or sinus congestion. CARDIOVASCULAR: Denies chest pain. RESPIRATORY: Denies shortness of breath, cough, congestion, difficulty breathing, or wheezing. GASTROINTESTINAL: See HPI. GENITOURINARY: Denies difficulty urinating, burning, blood in urine, urgency or frequency. MUSCULOSKELETAL: Denies neck and back pain. Denies joint pain or swelling. SKIN: Denies rash, itchiness, or lesions HEMATOLOGIC : Denies easy bruising or bleeding. LYMPHATIC: Denies swollen, painful, enlarged glands. NEUROLOGICAL: Denies no numbness or tingling denies weakness. Denies headache. Denies altered mental status. Denies alteration in speech. PSYCHIATRIC: Denies stress, anxiety, alteration in sleep patterns, or depression. All other systems reviewed and negative. Physical Exam - Vital signs Vitals: Temp Pulse Resp BP Pulse Ox 98.4 F 118 H 24 H 71/51 L 92 05/01/19 15:27 05/01/19 15:27 05/01/19 15:27 05/01/19 15:27 05/01/19 15:27 - Notes Notes: PHYSICAL EXAMINATION: GENERAL: Appears well, healthy, well-nourished, no acute distress. HEAD: Normocephalic, atraumatic. EYES: PERRL, conjunctiva normal, all extraocular movements intact, sclera nonicteric ENT: Dry mucous membranes. NECK: Supple, no noticeable swelling, redness, rash. Normal range of motion. LUNGS: Equal breath sounds bilaterally and clear to auscultation. No wheezes rales or rhonchi. CARDIOVASCULAR: S1-S2, regular rate, regular rhythm. Radial pulses 2+, normal. ABDOMEN: Hypoactive bowel sounds. Firm, tender, guarding noted. Left-sided colostomy noted. EXTREMITIES: Normal strength and range of motion, no pitting or edema. No cyanosis. NEUROLOGICAL: Moves all extremities upon command. Strength 5/5 in all extremities. PSYCH: Normal mood, normal affect. SKIN: Warm, dry. No rash, lesions, ulcerations noted. Normal skin turgor. Course - Re-evaluation Re-evalutation: 05/01/19 19:[address] of the abdomen and pelvis, the patient has a bowel obstruction. I called Dr. Wilder, the surgical list on-call and he is requesting an oral contrast at this time. Patient's hematology is normal. Her chemistries are also unremarkable. Lipase is normal. Urinalysis is show she has protein and ketones in her urine. She was given IV fluids to help with this. Gastroccult was negative. 05/01/19 22:38 Patient ended up vomiting up her first bottle of contrast. I called Dr. Wilder and asked if the patient is okay to have her CT done now. He is okay with that. Patient will be brought to CT and given Zofran. 05/01/19 23:[address] of [address] scan with Dr. Wilder. Dr. Wilder will evaluate the patient. 05/02/19 00:16 Dr. Wilder evaluated the patient and he suspects the patient is constipated. He wants her to have an enema via her colostomy, Dulcolax, and magnesium citrate to help her clear out her bowels. Mother and patient are in agreement with this plan. Patient will be treated here in the emergency department and will be discharged home. Follow-up precautions were given. Verbal discharge instructions were given to the patient. They verbalized understanding. They are stable for discharge. 05/02/19 00:28 Report given to JAIME Akers should the patient have any problems before discharge. - Vital Signs Vital signs: Temp Pulse Resp BP Pulse Ox 98.4 F 118 H 14 125/56 L 96 05/01/19 15:27 05/01/19 15:27 05/01/19 15:48 05/01/19 15:48 05/01/19 15:43 - Laboratory Result Diagrams: 05/01/19 15:46 05/01/19 15:46 Laboratory results interpreted by me: 05/01/19 05/01/19 05/01/19 15:46 15:46 16:42 Hct 34.9 L RDW 15.2 H Est GFR ( Amer) 59 L Est GFR (MDRD) Non-Af 49 L Glucose 203 H Urine Protein 100 H Urine Ketones TRACE H Urine Urobilinogen 2.0 H Discharge - Discharge Clinical Impression: Constipation Qualifiers: Constipation type: unspecified constipation type Qualified Code(s): K59.00 - Constipation, unspecified Condition: Stable Disposition: HOME, SELF-CARE Instructions: Bowel Obstruction ([facility]) Additional Instructions: You were seen today in the emergency department for abdominal pain. The surgeon has evaluated you and determined that you are constipated. We treated your constipation here in the emergency department with magnesium citrate, Dulcolax, and enema. Please follow-up with your primary care provider in regards to this visit. You are being started on Dulcolax daily. Make sure you take this to help soften your stool. Make sure you drink plenty of water. Please follow-up with your primary care provider regards to this visit. Prescriptions: Dicyclomine HCl [Bentyl 20 mg Tablet] 20 mg PO QID PRN #20 tablet PRN Reason: Bisacodyl [Dulcolax 5 Mg Tablet] 5 mg PO DAILY #14 tabec Ondansetron [Zofran Odt 4 mg Tablet] 1 - 2 tab PO Q4H PRN #15 tab.rapdis PRN Reason: For Nausea/Vomiting Referrals: JOAQUIN ALEGRE MD [Primary Care Provider] - Follow up in 3-5 days
--- NOTE | 2019-05-01 19:29 | RADIOLOGY REPORT (SQ) ---
EXAM DESCRIPTION: CT ABD/PELVIS WITH IV ONLY COMPLETED DATE/TIME: 05/01/2019 5:31 pm REASON FOR STUDY: abdominal pain COMPARISON: 06/25/2016 TECHNIQUE: CT scan of the abdomen and pelvis performed using helical scanning technique with dynamic intravenous contrast injection. No oral contrast. Images reviewed with lung, soft tissue, and bone w indows. Reconstructed coronal and sagittal MPR images reviewed. Delayed images for evaluation of the urinary system also acquired. All images stored on PACS. All CT scanners at this facility use dose modulation, iterative reconstruction, and/or weight based d osing when appropriate to reduce radiation dose to as low as reasonably achievable (ALARA). [facility]: Dose Right [facility]: CareDose [facility]: Dose Right [facility]: Teradose 4D [facility]: [employer] CONTRAST TYPE AND DOSE: contrast/concentration: Isovue 350.00 mg/ml; Total Contrast Delivered: 54.0 ml; Total Saline Delivered: 65.0 ml RENAL FUNCTION: GFR > 60. RADIATION DOSE: CT Rad equipment meets quality standard of care and radiation dose reduction techniq ues were employed. CTDIvol: 4.9 - 5.2 mGy. DLP: 486 mGy-cm.. LIMITATIONS: None. FINDINGS: LOWER CHEST: No acute findings. LIVER: Normal size. No enhancing masses. No dilated ducts. SPLEEN: Normal size. No focal lesions. PANCREAS: No masses identified. No significant calcifications. No adjacent inflammation or peripancre atic fluid collections. Pancreatic duct not dilated. GALLBLADDER: No calcified stones. No inflammatory changes to suggest cholecystitis. ADRENAL GLANDS: No significant masses. RIGHT KIDNEY AND URETER: No cysts identified. No solid masses identified. No calcified stones. No hyd ronephrosis or hydroureter. LEFT KIDNEY AND URETER: No cysts identified. No solid masses identified. No calcified stones. No hydr onephrosis or hydroureter. AORTA AND VESSELS: No aneurysm. No dissection. Renal arteries, SMA, celiac without significant stenos is. RETROPERITONEUM: No bulky retroperitoneal adenopathy. BOWEL AND PERITONEAL CAVITY: Dilated loops of small bowel measuring up to 3.7 cm with moderate-large amount of mesenteric free fluid, possible obstruction. Left lower quadrant ostomy. . PELVIS: Moderate free fluid. Unremarkable bladder. ABDOMINAL WALL: No masses. No hernias. BONES: No acute findings. OTHER: No other significant finding. IMPRESSION: Dilated loops of small bowel measuring up to 3.7 cm with moderate-large amount of mesent fco free fluid, possible obstruction. TECHNICAL DOCUMENTATION: JOB ID: [id number] Quality ID # [id number]: Final reports with documentation of one or more dose reduction techniques (e.g., Au tomated exposure control, adjustment of the mA and/or kV according to patient size, use of iterative reconstruction technique) 2010 [employer]- All Rights Reserved Reading location - IP/workstation name: [employer]
--- NOTE | 2019-05-01 23:13 | RADIOLOGY REPORT (SQ) ---
EXAM DESCRIPTION: CT ABDOMEN PELVIS WITHOUT IV CONTRAST COMPLETED DATE/TME: 05/01/2019 19:51 CLINICAL HISTORY: 89 years, Female, further eval bowel obstruction COMPARISON: CT from 5:27 PM of today's date TECHNIQUE: 311 Images stored on PACS. All CT scanners at this facility use dose modulation, iterative reconstruction, and/or weight based dosing when appropriate to reduce radiation dose to as low as reasonably achievable (ALARA). [facility]: Dose Right [facility]: CareDose [facility]: Dose Right [facility]: Teradose 4D [facility]: [employer] LIMITATIONS: None. FINDINGS: Limited evaluation of the lung bases shows minor bibasilar pleural thickening. Osseous structures are grossly intact. Limited evaluation of the liver suggests fatty infiltrative change. Splenic granuloma. The adrenal glands are not well seen. The pancreas and kidneys are grossly unremarkable. The gallbladder is present, moderately distended. Severe atheromatous calcified. There is gas and stool within the colon. There is a right hip prosthesis with associated streak artifact. Contrast within the urinary bladder. There is a small amount of oral contrast and proximal small bowel with the remainder predominantly in the stomach. Small bowel detail is poorly defined however, subjective areas of small bowel wall thickening with haziness of the abdominal mesentery particularly in the left lower quadrant and left midabdomen. A partially visualized ostomy in the anterior left mid abdomen. Small volume of free fluid. No free air. A few loops of small bowel are mildly dilated without definitive transition point IMPRESSION: A few mildly dilated fluid-filled loops of small bowel without definitive transition point. There is haziness of the abdominal mesentery particularly in the left mid abdomen with a small volume of free fluid. Most of the contrast remains in the stomach. Continued follow-up recommended. No free air. Gas and stool in the colon. TECHNICAL DOCUMENTATION: Quality ID # [id number]: Final reports with documentation of one or more dose reduction techniques (e.g., Automated exposure control, adjustment of the mA and/or kV according to patient size, use of iterative reconstruction technique) copyright 2011 [employer]- All Rights Reserved
[2019-05-02] MEDS ORDERED: NA PHOS,M-B/NA PHOS,DI-BA (ADULT) 133 ML ENEMA PR ONE (00:10)
[2019-05-02] MEDS ORDERED: MAGNESIUM CITRATE 296 ML BOTTLE PO ONE (00:10)
[2019-05-02] MEDS ORDERED: BISACODYL 5 MG TABEC PO ONE (00:11)
--- NOTE | 2019-05-02 00:21 | PDOC H&P ---
History of Present Illness Admission Date/PCP: JOAQUIN ALEGRE MD Patient complains of: Constipation and abdominal pain History of Present Illness: LEANDRA LEZAMA is a 89 year old female with apast medical surgical history is significant for adenocarcinoma status post neoadjuvant chemoradiation followed by abdominal perineal resection Dr. Mike nagel, 2010. She is had several episodes of small bowel obstruction since then all managed nonoperatively likely due to constipation. Patient returns to the emergency room complaining of abdominal pain, decreased colostomy output, and mild nausea. A CT scan of the abdomen pelvis was done with oral contrast revealing mildly dilated loops of small bowel without evidence of acute surgical condition, no free air, very small amount of free intraperitoneal fluid, no evidence of abnormal bowel loops, no bowel ischemia. In addition, her blood work is within normal limits. Past Medical History Cardiac Medical History: Denies: Congestive Heart Failure, Coronary Artery Disease, DVT, Myocardial Infarction, Hyperlipidema, Hypertension, Pulmonary Embolism Pulmonary Medical History: Reports: Pneumonia - hx of Denies: Asthma, Bronchitis, Chronic Obstructive Pulmonary Disease (COPD), Tuberculosis Neurological Medical History: Denies: Seizures Endocrine Medical History: Denies: Diabetes Mellitus Type 1, Diabetes Mellitus Type 2, Hyperthyroidism, Hypothyroidism Malignancy Medical History: Reports: Colorectal Cancer, Skin Cancer - Melanoma, left forearm, status post excision of same. Denies: Breast Cancer, Cervical Cancer, Ovarian Cancer GI Medical History: Denies: Cirrhosis, Crohn's Disease, Gastroesophageal Reflux Disease, Hepati tis, Hiatal Hernia Musculoskeltal Medical History: Denies: Arthritis Psychiatric Medical History: Reports: Depression Hematology: Reports: Anemia - hx of Denies: Sickle Cell Disease Infectious Medical History: Past Surgical History Past Surgical History: Reports: Appendectomy, Hysterectomy, Ileostomy, Other - Abdominal perineal resection with permanent colostomy Denies: Amputation, Section, Cholecystectomy, Colostomy, Coronary Artery Bypass Graft, Gastric Bypass Surgery, Herniorrhaphy, Mastectomy, Pacemaker, Tonsillectomy, Tubal Ligation Social History Smoking Status: Unknown if Ever Smoked Frequency of Alcohol Use: None Hx Recreational Drug Use: No Drugs: None Hx Prescription Drug Abuse: No Family History Family History: Reviewed & Not Pertinent Parental Family History Reviewed: No Children Family History Reviewed: No Sibling(s) Family History Reviewed.: No Medication/Allergy Home Medications: Acetaminophen [Tylenol 325 mg Tablet] 1,000 mg PO Q8HP PRN 06/25/16 Ascorbic Acid [Vitamin C 500 mg Tablet] 250 mg PO DAILY 06/25/16 Bupropion HCl 75 mg PO DAILY 06/25/16 Calcium Carbonate/Vitamin D3 [Calcium 500-Vit D3 400 Tablet] 1 each PO DAILY 06/25/16 Ferrous Sulfate [Feosol 325 mg Tablet] 325 mg PO BID 06/25/16 Guar Gum [Benefiber] 2 tsp PO DAILY 06/25/16 Hydrocodone/Acetaminophen [[place] 5-325 Tablet] 1 tab PO Q6HP PRN 06/25/16 Ipratropium/Albuterol Sulfate [Combivent Respimat 4 gm Mdi] 1 puff PO Q6HP PRN 06/25/16 Multivitamin [Tab-A-Corrine] 1 each PO DAILY 06/25/16 Rivaroxaban [Xarelto 10 mg Tablet] 10 mg PO DAILY 06/25/16 Sennosides [Senna] 17.2 mg PO QHS 06/25/16 Ondansetron [Zofran Odt] 4 mg PO Q6 PRN #30 tab.rapdis 11/18/17 Allergies/Adverse Reactions: No Known Allergies Allergy (Verified 06/25/16 18:09) Physical Exam Vital Signs: Temp Pulse Resp BP Pulse Ox 98.4 F 118 H 14 125/56 L 96 05/01/19 15:27 05/01/19 15:27 05/01/19 15:48 05/01/19 15:48 05/01/19 15:43 Intake & Output 04/30/19 05/01/19 05/02/19 06:59 06:59 06:59 Intake Total 1000 Balance 1000 Weight 46.72 kg General appearance: PRESENT: no acute distress, disheveled, thin Head exam: PRESENT: atraumatic, normocephalic Eye exam: PRESENT: EOMI, PERRLA Mouth exam: PRESENT: dry mucosa, neck supple Neck exam: PRESENT: full ROM Respiratory exam: PRESENT: chest wall tenderness Cardiovascular exam: PRESENT: RRR GI/Abdominal exam: PRESENT: hypoactive bowel sounds, soft, other - Colostomy = pink, viable, filled with thick stools, digital exam unremarkable Rectal exam: PRESENT: fecal impaction - After digitalization of the colostomy Neurological exam: PRESENT: alert, oriented to person Psychiatric exam: PRESENT: unusual affect Focused psych exam: PRESENT: delusional Skin exam: PRESENT: warm Results Laboratory Results: 05/01/19 15:46 05/01/19 15:46 05/01/19 05/01/19 05/01/19 15:46 15:46 15:46 WBC 9.1 RBC 3.83 Hgb 12.1 Hct 34.9 L MCV 91 MCH 31.7 MCHC 34.8 RDW 15.2 H Plt Count 394 Seg Neutrophils % 73.0 Sodium 140.5 Potassium 3.6 Chloride 105 Carbon Dioxide 25 Anion Gap 11 BUN 20 Creatinine 1.07 Est GFR ( Amer) 59 L Glucose 203 H Calcium 9.3 Total Bilirubin 0.6 AST 29 Alkaline Phosphatase 120 Total Protein 6.7 Albumin 3.5 Lipase 116.3 Urine Color Urine Appearance Urine pH Ur Specific Venus Urine Protein Urine Glucose (UA) Urine Ketones Urine Blood Urine RBC (Auto) 05/01/19 16:42 WBC RBC Hgb Hct MCV MCH MCHC RDW Plt Count Seg Neutrophils % Sodium Potassium Chloride Carbon Dioxide Anion Gap BUN Creatinine Est GFR ( Amer) Glucose Calcium Total Bilirubin AST Alkaline Phosphatase Total Protein Albumin Lipase Urine Color GIOVANNA Urine Appearance SLIGHTLY-CLOUDY Urine pH 5.0 Ur Specific Venus 1.020 Urine Protein 100 H Urine Glucose (UA) NEGATIVE Urine Ketones TRACE H Urine Blood NEGATIVE Urine RBC (Auto) 3 Impressions: KUB X-Ray 05/01/19 15:27 IMPRESSION: Mild gastric, small bowel and colonic distention. Similar findings were noted on prior study. Abdomen/Pelvis CT 05/01/19 19:51 IMPRESSION: A few mildly dilated fluid-filled loops of small bowel without definitive transition point. There is haziness of the abdominal mesentery particularly in the left mid abdomen with a small volume of free fluid. Most of the contrast remains in the stomach. Continued follow-up recommended. No free air. Gas and stool in the colon. TECHNICAL DOCUMENTATION: Quality ID # [id number]: Final reports with documentation of one or more dose reduction techniques (e.g., Automated exposure control, adjustment of the mA and/or kV according to patient size, use of iterative reconstruction technique) copyright 2011 [employer]- All Rights Reserved Assessment & Plan - Diagnosis (1) Constipation Qualifiers: Constipation type: chronic idiopathic constipation Qualified Code(s): K59.04 - Chronic idiopathic constipation Is this a current diagnosis for this admission?: Yes - Plan Summary Plan Summary: Assessment: Status post abdominal perineal resection for rectal cancer 2010 Constipation with inspissated stools on digital exam of the colostomy CT scan abdomen pelvis without acute findings Physical exam shows a soft abdomen with viable colostomy Plan: Given Fleet Enema via colostomy now Dulcolax 40 mg p.o. x1 now Encourage patient oral intake of fluids now Measure citrate 1 bottle p.o. followed by oral fluids Patient to receive a regimen of Colace and/or MiraLAX daily to prevent constipation Patient and her daughter instructed on therapeutic measures to prevent the onset of constipation Follow-up with her family care physician Patient can be safely discharged to home; however, she should return to the hospital should the symptoms persist
[2019-05-02] MEDS ORDERED: ONDANSETRON ODT 4 MG TAB (6 TAB/ER DISP) PO PRN (00:40)
[2019-05-02] MEDS ORDERED: DICYCLOMINE HCL 20 MG TABLET PO ONE (01:18)
[2019-05-02 01:49] VITALS: BP 171/104
== END 2019-05-02 02:05 | disposition home or self-care (01) ==
LOC: ER 15:10
DX: K59.04 Chronic idiopathic constipation (principal); R11.2 Nausea with vomiting, unspecified; Z93.3 Colostomy status; Z85.048 Personal history of other malignant neoplasm of rectum, rectosigmoid junction, and anus; Z85.820 Personal history of malignant melanoma of skin; Z90.49 Acquired absence of other specified parts of digestive tract; Z92.21 Personal history of antineoplastic chemotherapy; Z92.3 Personal history of irradiation; Z79.899 Other long term (current) drug therapy; Z79.02 Long term (current) use of antithrombotics/antiplatelets
CPT/HCPCS: 36415; 83690; 85025; 80053; 81001; 74018; 74176; 74177; A9270 ×5; J3010; J2270; J2405; J7030; 96361; 96374; 96375; 96376; 99285; J3490